=== PATIENT | male | born 1950 | race Hispanic/Latino ===

== ENCOUNTER 2019-02-13 05:48 | Inpatient (IN) | payer OTHER ==
[2019-02-11 14:15] VITALS: BP 138/71
[2019-02-11 14:42] LABS: BASOPHILS % (AUTO) 0.6 % (0.0-5.0); EOSINOPHILS % (AUTO) 2.9 % (0.0-8.0); HEMATOCRIT 35.4 % (42-54); LYMPHOCYTES % (AUTO) 23.3 % (21.0-51.0); MEAN CORPUSCULAR HEMOGLOBIN 30.3 pg (27.0-33.0); MEAN CORPUSCULAR HGB CONC 35.1 g/dL (32.0-36.0); MEAN CORPUSCULAR VOLUME 86.3 fL (79-99); MONOCYTES % (AUTO) 7.1 % (3.0-13.0); NEUTROPHILS % (AUTO) 66.1 % (40.0-77.0); NUCLEATED RED BLOOD CELLS 0.1 % (0.0-0.19); PLATELET COUNT (AUTO) 227 K/uL (130-400); RED CELL DISTRIBUTION WIDTH 14.2 % (11.0-15.5); WHITE BLOOD COUNT (AUTO) 6.7 K/uL (4.8-10.8)
[2019-02-11 14:44] LABS: APPEARANCE,URINE Clear (CLEAR); BILIRUBIN,URINE Negative (NEGATIVE); COLOR,URINE Dark Yellow (YELLOW); GLUCOSE, URINE (UA) Negative (NEGATIVE); KETONES,URINE Negative (NEGATIVE); LEUKOCYTE ESTERASE ,URINE Trace (NEGATIVE); NITRATE,URINE Negative (NEGATIVE); OCCULT BLOOD,URINE Negative (NEGATIVE); PROTEIN,URINE Negative (NEGATIVE)
[2019-02-11 14:50] LABS: BACTERIA,URINE Few /HPF (None Seen); RBC,URINE 0-1 /HPF (0-1); SQUAMOUS EPITHELIAL CELL,UR Rare /HPF (0-2)
[2019-02-11 14:56] LABS: INR 0.99 (0.85-1.15); PARTIAL THROMBOPLASTIN TIME 27.3 SEC (26.3-35.5); PROTHROMBIN TIME 10.4 SEC (9.6-11.6)
[2019-02-13] VITALS (19 sets, daily range): BP systolic 119–165; BP diastolic 50–82
[~2019-02-13] VITALS: Ht 185.4 cm; Wt 115.4 kg
[~2019-02-13 05:48] MED LIST: ASPI-1005 PO; ATEN50TA PO; CARB1DRO4 OP; FLUT15.845 NS; ISOS30TA6 PO; LEVO112T7 PO; LORA0.5T2 PO; MELO-108 PO; SIMV-43 PO; TAMS-1 PO
[2019-02-13] MEDS ORDERED: SODIUM CHLORIDE 0.9% 1000ML 1,000 ML IV ONE (06:26)
[2019-02-13] MEDS ORDERED: IOHEXOL-350 50ML VIAL IV ONE (07:14)
[2019-02-13] MEDS ORDERED: MIDAZOLAM HCL 1 MG/ML 2ML VIAL ONE ×2 (07:14→11:16)
[2019-02-13] MEDS ORDERED: IOHEXOL 350 MG/ML 100ML INFUS..BTL IV ONE (07:14)
[2019-02-13] MEDS ORDERED: NITROGLYCERIN 5 MG/ML 10 ML VIAL IV ONE (07:14)
[2019-02-13] MEDS ORDERED: FENTANYL CITRATE PF 50 MCG/1 ML 2ML VIAL ONE (07:15)
[2019-02-13] MEDS ORDERED: LIDOCAINE HCL 2% 20ML ONE (07:15)
[2019-02-13] MEDS ORDERED: NITR0.4T50 SL (07:16)
[2019-02-13] MEDS ORDERED: BIVALIRUDIN 250 MG/VIAL IV ONE (07:19)
[2019-02-13] MEDS ORDERED: SODIUM CHLORIDE 0.9% 1000ML 1,000 ML IV SCH ×3 (08:00→13:30)
[2019-02-13] MEDS ORDERED: IOHEXOL-350 75 ML VIAL IV ONE (08:02)
[2019-02-13] MEDS ORDERED: GLUCAGON 1MG KIT 1 MG ML IM PRN ×2 (08:45→13:30)
[2019-02-13] MEDS ORDERED: DEXTROSE 50%-WATER 50 ML DISP.SYRIN IV PRN ×2 (08:45→13:30)
[2019-02-13] MEDS ORDERED: LISINOPRIL 10 MG TABLET PO SCH (09:00)
[2019-02-13] MEDS ORDERED: METOPROLOL TARTRATE 25 MG TAB PO SCH (09:00)
[2019-02-13] MEDS ORDERED: CEFAZOLIN SODIUM 1 GM VIAL IVP PRN (09:15)
[2019-02-13 10:03] LABS: HEMATOCRIT 34.2 % (42-54); MEAN CORPUSCULAR HEMOGLOBIN 31.5 pg (27.0-33.0); MEAN CORPUSCULAR HGB CONC 36.1 g/dL (32.0-36.0); MEAN CORPUSCULAR VOLUME 87.2 fL (79-99); PLATELET COUNT (AUTO) 206 K/uL (130-400); RED BLOOD CELL COUNT(AUTO) 3.92 MIL/uL (4.50-6.20); RED CELL DISTRIBUTION WIDTH 14.2 % (11.0-15.5); WHITE BLOOD COUNT (AUTO) 7.1 K/uL (4.8-10.8)
[2019-02-13 10:14] LABS: INR 1.04 (0.85-1.15); PROTHROMBIN TIME 10.9 SEC (9.6-11.6)
[2019-02-13 10:16] LABS: ALBUMIN 3.3 g/dL (3.5-5.0); BILIRUBIN,TOTAL 0.6 mg/dL (0.2-1.0); CREATININE 0.9 mg/dL (0.5-1.5); TOTAL PROTEIN, SERUM 7.1 g/dL (6.0-8.3)
[2019-02-13] MEDS ORDERED: PROPOFOL 10 MG/ML 20ML VIAL IV ONE ×2 (11:16→13:01)
[2019-02-13] MEDS ORDERED: FENTANYL CITRATE PF 50 MCG/1 ML 20ML VIAL IJ ONE (11:16)
[2019-02-13] MEDS ORDERED: LIDOCAINE PF 2% 5ML ABBOJECT ONE ×2 (11:16→14:54)
[2019-02-13] MEDS ORDERED: ROCURONIUM 10MG/1ML SYR 10 MG/ML ML ONE (11:17)
[2019-02-13] MEDS ORDERED: NITROGLYCERIN 50 MG/D5% WATER 1 BOT ONE (11:45)
[2019-02-13] MEDS ORDERED: BACITRACIN 50,000 UNIT VIAL ONE (12:13)
[2019-02-13] MEDS ORDERED: PAPAVERINE HCL 30 MG/ML 2ML VIAL ONE (12:13)
[2019-02-13] MEDS ORDERED: GLYCOPYRROLATE 1 MG/5 ML SYRINGE ONE (12:32)
[2019-02-13 13:17] LABS: ABG HCO3 21.6 mmol/L (21.0-28.0); ABG OXYGEN SATURATION 99.2 % (95.0-99.0); ABG PCO2 37 mmHg (35-48)
[2019-02-13] MEDS ORDERED: SODIUM CHLORIDE 0.9% 500ML 500 ML IV SCH (13:17)
[2019-02-13] MEDS ORDERED: ALBUMIN (HUMAN) 5% 250 ML IV PRN (13:30)
[2019-02-13] MEDS ORDERED: MORPHINE SULFATE 4 MG/1ML SYG IV PRN (13:30)
[2019-02-13] MEDS ORDERED: EPINEPHRINE 8 MG in DEXTROSE 5%-WATER 250 ML IV PRN (13:30)
[2019-02-13] MEDS ORDERED: POTASSIUM PHOS 15 mMOL+NS250ML 250 ML IV PRN (13:30)
[2019-02-13] MEDS ORDERED: ACETAMINOPHEN 325 MG TAB PO PRN ×2 (13:30)
[2019-02-13] MEDS ORDERED: NITROGLYCERIN 50 MG/D5% WATER 250 BOT IV SCH (13:30)
[2019-02-13] MEDS ORDERED: SODIUM CHLORIDE 0.9% 10 ML VIAL IVP PRN (13:30)
[2019-02-13] MEDS ORDERED: PROPOFOL 1000 MG/100 ML 100 ML IV PRN (13:30)
[2019-02-13] MEDS ORDERED: MORPHINE SULFATE 2 MG/ML 1ML SYG IV PRN (13:30)
[2019-02-13] MEDS ORDERED: TRAMADOL HCL 50 MG TABLET PO PRN (13:30)
[2019-02-13] MEDS ORDERED: SODIUM CHLORIDE 0.9% 250 ML IV PRN (13:30)
[2019-02-13] MEDS ORDERED: AMINOCAPROIC ACID 15,000 MG in SODIUM CHLORIDE 0.9% 250 ML IV SCH (13:30)
[2019-02-13] MEDS ORDERED: ACETAMINOPHEN 650 MG SUPPOSITORY RC PRN (13:30)
[2019-02-13] MEDS ORDERED: NOREPINEPHRINE 4MG/NS 250ML 250 ML IV PRN (13:30)
[2019-02-13] MEDS ORDERED: INSULIN REGULAR, HUMAN 3ML 100 UNIT in SODIUM CHLORIDE 0.9% 99 ML IV SCH ×2 (13:30)
[2019-02-13] MEDS ORDERED: SODIUM BICARB 50MEQ 50ML VIAL ONE (13:43)
[2019-02-13 14:32] LABS: ABG PCO2 35 mmHg (35-48)
[2019-02-13] MEDS ORDERED: NOREPINEPHRINE BITARTRATE 1 MG/1 ML ML IV ONE (14:54)
[2019-02-13] MEDS ORDERED: EPINEPHRINE 1 MG/ML AMPULE ONE (14:54)
[2019-02-13] MEDS ORDERED: ESMOLOL HCL 10 MG/ML 10 ML VIAL ONE (14:54)
[2019-02-13] MEDS ORDERED: PROTAMINE SULFATE 10 MG/ML 25ML VIAL IV ONE (14:54)
[2019-02-13] MEDS ORDERED: AMINOCAPROIC ACID 250 MG/ML 20 ML VIAL IV ONE (14:54)
[2019-02-13] MEDS ORDERED: HEPARIN SODIUM 1000UNIT/ML 10ML VIAL ONE (14:54)
[2019-02-13 15:44] LABS: ABG BASE EXCESS -3.4 mmol/L (-2.0-3.0); ABG HCO3 21.5 mmol/L (21.0-28.0); ABG PCO2 38 mmHg (35-48)
[2019-02-13 15:46] LABS: HEMATOCRIT 32.1 % (42-54); MEAN CORPUSCULAR HEMOGLOBIN 29.9 pg (27.0-33.0); MEAN CORPUSCULAR HGB CONC 34.5 g/dL (32.0-36.0); MEAN CORPUSCULAR VOLUME 86.9 fL (79-99); PLATELET COUNT (AUTO) 248 K/uL (130-400); RED CELL DISTRIBUTION WIDTH 13.8 % (11.0-15.5); WHITE BLOOD COUNT (AUTO) 19.9 K/uL (4.8-10.8)
[2019-02-13] MEDS ORDERED: CALCIUM GLUCONATE 1 GM/10 ML VIAL IV ONE ×3 (15:47→18:50)
[2019-02-13] MEDS: SODIUM BICARB 50MEQ 50ML VIAL IV PRN ×5 (15:48→20:36)
[2019-02-13 15:57] LABS: INR 1.09 (0.85-1.15); PARTIAL THROMBOPLASTIN TIME 24.1 SEC (26.3-35.5); PROTHROMBIN TIME 11.4 SEC (9.6-11.6)
[2019-02-13 15:58] LABS: CREATININE 0.9 mg/dL (0.5-1.5); MAGNESIUM 1.6 mg/dL (1.80-2.40); PHOSPHORUS 3.9 mg/dL (2.5-4.9); POTASSIUM 3.6 mmol/L (3.5-5.1)
[2019-02-13] MEDS: CALCIUM GLUCONATE 1 GM in SODIUM CHLORIDE 0.9% 50 ML IV PRN ×3 (15:58→18:50)
[2019-02-13] MEDS: POTASSIUM CHLORIDE 20MEQ/100ML 100 ML IV PRN ×4 (16:00→22:17)
[2019-02-13] MEDS: MAGNESIUM 2GM PREMIX 50ML 50 ML IV PRN (16:16)
[2019-02-13 16:38] LABS: ABG BASE EXCESS -1.3 mmol/L (-2.0-3.0); ABG HCO3 22.9 mmol/L (21.0-28.0); ABG OXYGEN SATURATION 98.8 % (95.0-99.0); ABG PCO2 37 mmHg (35-48)
[2019-02-13 17:37] LABS: ABG BASE EXCESS -1.4 mmol/L (-2.0-3.0); ABG HCO3 23.8 mmol/L (21.0-28.0); ABG PCO2 42 mmHg (35-48)
[2019-02-13] MEDS: CEFAZOLIN SODIUM 1 GM VIAL IV SCH (17:50)
[2019-02-13 18:37] LABS: ABG BASE EXCESS -1.9 mmol/L (-2.0-3.0); ABG HCO3 22.8 mmol/L (21.0-28.0); ABG OXYGEN SATURATION 98.3 % (95.0-99.0); ABG PCO2 39 mmHg (35-48)
--- NOTE | 2019-02-13 18:45 | NUR ---
Patient awake and alert. Able to follow commands. Able to raise head from pillow. NIP -30 and TV 1057. Patient extubated and placed on cool mist 40%. Patient tolerated well.
[2019-02-13 20:01] LABS: ABG HCO3 23.3 mmol/L (21.0-28.0); ABG PCO2 42 mmHg (35-48)
[2019-02-13] MEDS: TRAMADOL HCL 50 MG TABLET PO PRN (20:17)
[2019-02-13] MEDS: ATORVASTATIN CALCIUM 40 MG TABLET PO SCH (20:19)
[2019-02-13] MEDS: FAMOTIDINE/PF 20 MG/2 ML VIAL IV SCH (20:19)
--- NOTE | 2019-02-13 20:30 | NUR ---
LEVOPHED LEVOPHED WEANED OFF AT THIS TIME. ASBP 140-150 WILL CONTINUE TO MONITOR.
[2019-02-13 21:00] LABS: CREATININE 1.3 mg/dL (0.5-1.5); POTASSIUM 3.8 mmol/L (3.5-5.1)
[2019-02-13] MEDS: ONDANSETRON HCL 4 MG/2 ML VIAL IV PRN (21:51)
[2019-02-13 22:10] LABS: ABG BASE EXCESS 0.4 mmol/L (-2.0-3.0); ABG HCO3 24.7 mmol/L (21.0-28.0); ABG PCO2 39 mmHg (35-48)
[2019-02-14] VITALS (24 sets, daily range): BP systolic 98–163; BP diastolic 39–77
[2019-02-14] MEDS ORDERED: SALI10004 MM (01:23)
[2019-02-14] MEDS: CEFAZOLIN SODIUM 1 GM VIAL IV SCH ×2 (01:51→10:16)
--- NOTE | 2019-02-14 03:02 | NUR ---
STATUS PT RESTING COMFORTABLY DOES HAVE PERIODS OF ANXIETY. WHEN ASKED IF IN PAIN STATES ONLY WHEN HE TAKES DEEP BREATHS. WILL CONTINUE TO MONITOR.
[2019-02-14 04:11] LABS: ABG BASE EXCESS 3.8 mmol/L (-2.0-3.0); ABG HCO3 28.6 mmol/L (21.0-28.0); ABG OXYGEN SATURATION 98.7 % (95.0-99.0); ABG PCO2 43 mmHg (35-48)
[2019-02-14 04:20] LABS: HEMATOCRIT 31.5 % (42-54); MEAN CORPUSCULAR HEMOGLOBIN 29.8 pg (27.0-33.0); MEAN CORPUSCULAR HGB CONC 34.7 g/dL (32.0-36.0); MEAN CORPUSCULAR VOLUME 85.8 fL (79-99); PLATELET COUNT (AUTO) 213 K/uL (130-400); RED BLOOD CELL COUNT(AUTO) 3.67 MIL/uL (4.50-6.20); RED CELL DISTRIBUTION WIDTH 14.3 % (11.0-15.5); WHITE BLOOD COUNT (AUTO) 15.2 K/uL (4.8-10.8)
[2019-02-14] MEDS ORDERED: CALCIUM GLUCONATE 1 GM/10 ML VIAL IV ONE (04:29)
[2019-02-14] MEDS: CALCIUM GLUCONATE 1 GM in SODIUM CHLORIDE 0.9% 50 ML IV PRN ×2 (04:31→04:49)
[2019-02-14 04:37] LABS: CREATININE 1.1 mg/dL (0.5-1.5); MAGNESIUM 1.9 mg/dL (1.80-2.40); PHOSPHORUS 3.4 mg/dL (2.5-4.9); POTASSIUM 4.2 mmol/L (3.5-5.1)
[2019-02-14 04:41] LABS: INR 1.06 (0.85-1.15); PARTIAL THROMBOPLASTIN TIME 24.5 SEC (26.3-35.5); PROTHROMBIN TIME 11.1 SEC (9.6-11.6)
[2019-02-14] MEDS: MAGNESIUM 2GM PREMIX 50ML 50 ML IV PRN (04:42)
[2019-02-14] MEDS: ONDANSETRON HCL 4 MG/2 ML VIAL IV PRN (09:07)
[2019-02-14] MEDS: FUROSEMIDE 10 MG/ML 2ML VIAL IV SCH ×2 (09:08→20:16)
[2019-02-14] MEDS: FAMOTIDINE/PF 20 MG/2 ML VIAL IV SCH (09:08)
[2019-02-14] MEDS: ASPIRIN 325MG EC TAB 325 MG TABLET.DR PO SCH (10:15)
--- NOTE | 2019-02-14 12:39 | NUR ---
BP IN STANDING 79/50 NURSE AWARE. Pt JARAD. RETURNS TO SITTING. POST TREAT BP 133/62 Addendum: 02/14/19 at [address], PT PT Amended: Links added.
[2019-02-14] MEDS ORDERED: SALIVA SUBSTITUTION COMBO NO 9 PO PRN (19:15)
--- NOTE | 2019-02-14 19:24 | NUR ---
cm note met with patient and with daughter Nenita, pt states resides athome alone very independent with adls and ambulation. no dme. both pt and daughter wish to go to a rehab, want [facility] only. states will only consider snf if denied by insurance. 2nd choice would be [facility], due to it is close to daughter eileen home. states surgeon suggested [facility] and that is their first choicie, updated on process for insurance.updated primary nurse for md orders needed. Addendum: 02/14/19 at 7 by HARSHIL WELCH CM Amended: Links added.
[2019-02-14] MEDS: ATORVASTATIN CALCIUM 40 MG TABLET PO SCH (20:15)
[2019-02-14] MEDS: TAMSULOSIN HCL 0.4 MG CAP.ER.24H PO SCH (20:15)
[2019-02-14] MEDS: METOPROLOL TARTRATE 25 MG TAB PO SCH (20:16)
[2019-02-14] MEDS: FAMOTIDINE 20MG TAB 20 MG TAB PO SCH (20:16)
[2019-02-14] MEDS: TRAMADOL HCL 50 MG TABLET PO PRN (20:18)
--- NOTE | 2019-02-14 22:40 | NUR ---
CHEST TUBES PATIENT CHEST TUBES REMOVED. FOLLOWED INSTRUCTION AND TOLERATED WELL. DENIES ACUTE PAIN. CURRENTLY CALM. BREATHING REGULAR AND UNLABORED. NO ACUTE SIGNS OR SYMPTOMS OF DISTRESS.
[2019-02-15] VITALS (24 sets, daily range): BP systolic 96–149; BP diastolic 50–71
[2019-02-15 03:54] LABS: HEMATOCRIT 28.4 % (42-54); MEAN CORPUSCULAR HEMOGLOBIN 29.7 pg (27.0-33.0); MEAN CORPUSCULAR VOLUME 87.3 fL (79-99); PLATELET COUNT (AUTO) 136 K/uL (130-400); RED BLOOD CELL COUNT(AUTO) 3.25 MIL/uL (4.50-6.20); RED CELL DISTRIBUTION WIDTH 14.4 % (11.0-15.5); WHITE BLOOD COUNT (AUTO) 12.8 K/uL (4.8-10.8)
[2019-02-15 04:05] LABS: POTASSIUM 3.6 mmol/L (3.5-5.1)
[2019-02-15] MEDS: POTASSIUM CHLORIDE 20MEQ/100ML 100 ML IV PRN (04:44)
[2019-02-15] MEDS ORDERED: LIDOCAINE HCL-MPF 1% 2ML VIAL IV PRN (04:45)
[2019-02-15] MEDS ORDERED: METOPROLOL TARTRATE 25 MG TAB PO SCH (09:00)
[2019-02-15] MEDS: FAMOTIDINE 20MG TAB 20 MG TAB PO SCH ×2 (09:21→20:38)
[2019-02-15] MEDS: METOPROLOL TARTRATE 25 MG TAB PO SCH ×2 (09:21→20:38)
[2019-02-15] MEDS: FUROSEMIDE 20 MG TABLET PO SCH ×2 (09:22→17:51)
[2019-02-15] MEDS: ASPIRIN 325MG EC TAB 325 MG TABLET.DR PO SCH (09:22)
--- NOTE | 2019-02-15 11:45 | NUR ---
118/61 91 % 2L POST TREATMENT BACK TO BED PER NURSE Addendum: 02/15/19 at [address], PT PT Amended: Links added.
[2019-02-15] MEDS: TAMSULOSIN HCL 0.4 MG CAP.ER.24H PO SCH (20:39)
[2019-02-15] MEDS: ATORVASTATIN CALCIUM 40 MG TABLET PO SCH (20:39)
[2019-02-16] VITALS (11 sets, daily range): BP systolic 96–135; BP diastolic 45–69
[2019-02-16 03:54] LABS: HEMATOCRIT 30.5 % (42-54); MEAN CORPUSCULAR HEMOGLOBIN 29.6 pg (27.0-33.0); MEAN CORPUSCULAR HGB CONC 33.7 g/dL (32.0-36.0); MEAN CORPUSCULAR VOLUME 87.7 fL (79-99); PLATELET COUNT (AUTO) 119 K/uL (130-400); RED BLOOD CELL COUNT(AUTO) 3.48 MIL/uL (4.50-6.20); RED CELL DISTRIBUTION WIDTH 14.4 % (11.0-15.5)
[2019-02-16 04:01] LABS: CREATININE 0.9 mg/dL (0.5-1.5); MAGNESIUM 1.8 mg/dL (1.80-2.40); POTASSIUM 3.6 mmol/L (3.5-5.1)
[2019-02-16] MEDS: POTASSIUM CHLORIDE 10% ELIXIR 20 MEQ/15 ML UDCUP PO PRN ×2 (06:20→08:23)
[2019-02-16] MEDS ORDERED: LEVOTHYROXINE 112 MCG TABLET ONE (06:21)
[2019-02-16] MEDS: LEVOTHYROXINE 112 MCG TABLET PO SCH (06:22)
--- NOTE | 2019-02-16 07:28 | NUR ---
TRANSFER PATIENT BATHED AND TRANSFERRED OOB TO CHAIR. PATIENT THEN TRANSFERRED TO ROOM 221 VIA CHAIR. TOLERATED ACTIVITY WELL. DAUGHTER JOSE ANTONIO NOTIFIED OF TRANSFER.
[2019-02-16] MEDS: FAMOTIDINE 20MG TAB 20 MG TAB PO SCH ×2 (08:20→20:34)
[2019-02-16] MEDS: FUROSEMIDE 20 MG TABLET PO SCH ×2 (08:20→16:33)
[2019-02-16] MEDS: ASPIRIN 325MG EC TAB 325 MG TABLET.DR PO SCH (08:20)
[2019-02-16] MEDS: METOPROLOL TARTRATE 25 MG TAB PO SCH ×2 (08:23→20:34)
[2019-02-16] MEDS: MAGNESIUM 2GM PREMIX 50ML 50 ML IV PRN (08:23)
[2019-02-16] MEDS: ENOXAPARIN SODIUM 30 MG/0.3 ML SQ SCH (08:24)
[2019-02-16] MEDS ORDERED: HYDROXYZINE HCL 50 MG/ML VIAL IM PRN (09:00)
[2019-02-16] MEDS: AMIODARONE HCL 200 MG TABLET PO SCH ×2 (11:16→20:34)
[2019-02-16] MEDS: POLYETHYLENE GLYCOL 3350 17 GM POWD.PACK PO SCH (11:16)
--- NOTE | 2019-02-16 17:22 | NUR ---
DR. Ingrid UMRILLO IN ROOM SPEAKING WITH PT. AND PT.'S DAUGHTER AT BEDSIDE RE:PLAN OF CARE, QUESTIONS ANSWERED.
[2019-02-16] MEDS: ATORVASTATIN CALCIUM 40 MG TABLET PO SCH (20:34)
[2019-02-16] MEDS: TAMSULOSIN HCL 0.4 MG CAP.ER.24H PO SCH (20:35)
[2019-02-17] VITALS (7 sets, daily range): BP systolic 111–159; BP diastolic 53–90
[2019-02-17 03:50] LABS: HEMATOCRIT 25.8 % (42-54); MEAN CORPUSCULAR HGB CONC 34.3 g/dL (32.0-36.0); MEAN CORPUSCULAR VOLUME 87.6 fL (79-99); PLATELET COUNT (AUTO) 152 K/uL (130-400); RED BLOOD CELL COUNT(AUTO) 2.95 MIL/uL (4.50-6.20); RED CELL DISTRIBUTION WIDTH 14.5 % (11.0-15.5); WHITE BLOOD COUNT (AUTO) 7.4 K/uL (4.8-10.8)
[2019-02-17 04:01] LABS: POTASSIUM 4.1 mmol/L (3.5-5.1)
[2019-02-17] MEDS: FUROSEMIDE 20 MG TABLET PO SCH ×2 (07:47→16:05)
[2019-02-17] MEDS: ASPIRIN 325MG EC TAB 325 MG TABLET.DR PO SCH (07:47)
[2019-02-17] MEDS: AMIODARONE HCL 200 MG TABLET PO SCH ×2 (07:47→20:23)
[2019-02-17] MEDS: FAMOTIDINE 20MG TAB 20 MG TAB PO SCH ×2 (07:48→20:23)
[2019-02-17] MEDS: METOPROLOL TARTRATE 25 MG TAB PO SCH ×2 (07:48→20:23)
[2019-02-17] MEDS: LEVOTHYROXINE 112 MCG TABLET PO SCH (07:48)
[2019-02-17] MEDS: POLYETHYLENE GLYCOL 3350 17 GM POWD.PACK PO SCH (07:49)
[2019-02-17] MEDS: ENOXAPARIN SODIUM 30 MG/0.3 ML SQ SCH (07:50)
[2019-02-17] MEDS ORDERED: ENOXAPARIN SODIUM 30 MG/0.3 ML SQ SCH (09:00)
--- NOTE | 2019-02-17 09:10 | NUR ---
DR. CISNEROS IN ROOM SPEAKING WITH PT. RE:PLAN OF CARE. MEDICATIONS, LAB RESULTS, VS AND CXR IMAGE REVIEWED BY DR. CISNEROS. ORDERS RECEIVED.
--- NOTE | 2019-02-17 09:33 | NUR ---
DR. Christian LANE IN ROOM ASSESSING/SPEAKING WITH PT. RE:PLAN OF CARE AND DISCHARGE PLANNING, PT. VERBALIZED UNDERSTANDING. QUESTIONS ANSWERED BY DR. LANE.
[2019-02-17] MEDS ORDERED: CALCIUM GLUCONATE 1 GM in SODIUM CHLORIDE 0.9% 50 ML IV SCH (10:15)
--- NOTE | 2019-02-17 14:32 | NUR ---
LANETTE PLAN KO IN CHART FOR WIR. THELMA NOLASCO. INFO SENT TO [facility]. GAVIN NOTIFIED AND VISITED WITH PATIENT. Addendum: 02/17/19 at 1434 by ELIO QUINTERO RN CM Amended: Links added.
--- NOTE | 2019-02-17 19:00 | NUR ---
CHEST TUBE SUTURES/INCISIONS PAINTED WITH BETADINE AND REMOVED; STERI-STRIPS APPLIED ORDERED.
[2019-02-17] MEDS: ATORVASTATIN CALCIUM 40 MG TABLET PO SCH (20:22)
[2019-02-17] MEDS: TAMSULOSIN HCL 0.4 MG CAP.ER.24H PO SCH (20:23)
[2019-02-17] MEDS ORDERED: ARTIFICAL TEARS SOL 15 ML OP PRN (23:15)
--- NOTE | 2019-02-18 03:30 | NUR ---
PATIENT REFUSED BATH AT TIME AND LATER THIIS SHIFT, STATED TO GUEST HOUSE MANAGER THAT WOULD TAKE A BATH WHEN WAS HERE 0530-PATIENT REFUSING TO GET UP AND SIT IN RECLINER.
[2019-02-18 03:54] VITALS: BP 149/60
[2019-02-18 03:54] LABS: BASOPHILS % (AUTO) 0.4 % (0.0-5.0); EOSINOPHILS % (AUTO) 0.1 % (0.0-8.0); HEMATOCRIT 25.4 % (42-54); LYMPHOCYTES % (AUTO) 9.5 % (21.0-51.0); MEAN CORPUSCULAR HEMOGLOBIN 29.9 pg (27.0-33.0); MEAN CORPUSCULAR VOLUME 85.5 fL (79-99); MONOCYTES % (AUTO) 8.8 % (3.0-13.0); NEUTROPHILS % (AUTO) 81.2 % (40.0-77.0); PLATELET COUNT (AUTO) 165 K/uL (130-400); RED BLOOD CELL COUNT(AUTO) 2.97 MIL/uL (4.50-6.20); RED CELL DISTRIBUTION WIDTH 14.2 % (11.0-15.5); WHITE BLOOD COUNT (AUTO) 6.4 K/uL (4.8-10.8)
[2019-02-18 04:14] LABS: POTASSIUM 3.8 mmol/L (3.5-5.1)
[2019-02-18] MEDS: POTASSIUM CHLORIDE 20 MEQ ERTAB PO PRN ×2 (05:37→07:12)
[2019-02-18 06:59] VITALS: BP 149/79
[2019-02-18] MEDS: METOPROLOL TARTRATE 25 MG TAB PO SCH ×3 (07:12→20:37)
[2019-02-18] MEDS: AMIODARONE HCL 200 MG TABLET PO SCH ×2 (07:12→20:37)
[2019-02-18] MEDS: FUROSEMIDE 20 MG TABLET PO SCH ×2 (07:12→16:16)
[2019-02-18] MEDS: FAMOTIDINE 20MG TAB 20 MG TAB PO SCH ×2 (07:12→20:37)
[2019-02-18] MEDS: ASPIRIN 325MG EC TAB 325 MG TABLET.DR PO SCH (07:12)
[2019-02-18] MEDS: LEVOTHYROXINE 112 MCG TABLET PO SCH (07:12)
[2019-02-18] MEDS: POLYETHYLENE GLYCOL 3350 17 GM POWD.PACK PO SCH (07:13)
[2019-02-18] MEDS: ENOXAPARIN SODIUM 30 MG/0.3 ML SQ SCH (07:13)
[2019-02-18] MEDS: FLUTICASONE PROPIONATE 50MCG/SPRAY 16 GM BOTTLE EN SCH ×2 (07:13→07:15)
--- NOTE | 2019-02-18 07:50 | NUR ---
ASSESSMENT PT IS AAOX4 DENIES CP DENIES SOB DENIES NV NO COMPLAINTS, BREATHING PATTERN IS EVEN AND UNLABORED. RESTING IN BED. ENCOURAGED COUGH AND DEEP BREATHING WITH HEART PILLOW SPLINTING AND USE OF IS 10XS Q1HR WHILE AWAKE. CALL LIGHT WITHIN REACH.
[2019-02-18] MEDS ORDERED: CALCIUM GLUCONATE 1 GM/10 ML VIAL IV SCH (08:15)
[2019-02-18] MEDS ORDERED: CALCIUM GLUCONATE 1 GM in SODIUM CHLORIDE 0.9% 50 ML IV SCH (08:15)
--- NOTE | 2019-02-18 09:00 | NUR ---
ROUNDS DR AMELIA GARCIA PA-C ROUNDED. SAW PATIENT, ORDERS RECEIVED AND CARRIED OUT.
[2019-02-18] MEDS: FLUOXETINE HCL 20 MG CAPSULE PO SCH (09:54)
[2019-02-18 11:00] VITALS: BP 131/70
[2019-02-18 15:34] VITALS: BP 139/75
[2019-02-18] MEDS: ONDANSETRON HCL 4 MG/2 ML VIAL IV PRN (16:54)
--- NOTE | 2019-02-18 17:15 | NUR ---
STATUS SITTING UPRIGHT IN BED. FAMILY IS AT BEDSIDE, CALL LIGHT WITHIN REACH.
[2019-02-18 19:55] VITALS: BP 153/84
[2019-02-18] MEDS: ATORVASTATIN CALCIUM 40 MG TABLET PO SCH (20:37)
[2019-02-18] MEDS: TAMSULOSIN HCL 0.4 MG CAP.ER.24H PO SCH (20:37)
[2019-02-18 23:33] VITALS: BP 142/75
[2019-02-19 03:51] LABS: BASOPHILS % (AUTO) 0.3 % (0.0-5.0); EOSINOPHILS % (AUTO) 0.2 % (0.0-8.0); HEMATOCRIT 25.5 % (42-54); LYMPHOCYTES % (AUTO) 9.6 % (21.0-51.0); MEAN CORPUSCULAR HEMOGLOBIN 29.8 pg (27.0-33.0); MEAN CORPUSCULAR HGB CONC 34.8 g/dL (32.0-36.0); MEAN CORPUSCULAR VOLUME 85.7 fL (79-99); MONOCYTES % (AUTO) 10.8 % (3.0-13.0); NEUTROPHILS % (AUTO) 79.1 % (40.0-77.0); PLATELET COUNT (AUTO) 183 K/uL (130-400); RED BLOOD CELL COUNT(AUTO) 2.98 MIL/uL (4.50-6.20); RED CELL DISTRIBUTION WIDTH 14.2 % (11.0-15.5); WHITE BLOOD COUNT (AUTO) 7.5 K/uL (4.8-10.8)
[2019-02-19 04:10] LABS: CREATININE 0.9 mg/dL (0.5-1.5); MAGNESIUM 1.9 mg/dL (1.80-2.40); PHOSPHORUS 3.5 mg/dL (2.5-4.9); POTASSIUM 3.8 mmol/L (3.5-5.1)
[2019-02-19 04:12] VITALS: BP 134/76
[2019-02-19] MEDS: POTASSIUM CHLORIDE 20 MEQ ERTAB PO PRN (05:21)
[2019-02-19] MEDS: AMIODARONE HCL 200 MG TABLET PO SCH (07:23)
[2019-02-19] MEDS: FLUTICASONE PROPIONATE 50MCG/SPRAY 16 GM BOTTLE EN SCH (07:23)
[2019-02-19] MEDS: FUROSEMIDE 20 MG TABLET PO SCH ×2 (07:23→16:20)
[2019-02-19] MEDS: LEVOTHYROXINE 112 MCG TABLET PO SCH (07:23)
[2019-02-19] MEDS: FLUOXETINE HCL 20 MG CAPSULE PO SCH (07:23)
[2019-02-19] MEDS: METOPROLOL TARTRATE 25 MG TAB PO SCH (07:24)
[2019-02-19] MEDS: FAMOTIDINE 20MG TAB 20 MG TAB PO SCH (07:24)
[2019-02-19] MEDS: POLYETHYLENE GLYCOL 3350 17 GM POWD.PACK PO SCH (07:24)
[2019-02-19] MEDS: ASPIRIN 325MG EC TAB 325 MG TABLET.DR PO SCH (07:24)
[2019-02-19] MEDS: ENOXAPARIN SODIUM 30 MG/0.3 ML SQ SCH (07:25)
[2019-02-19 07:53] VITALS: BP 112/60
--- NOTE | 2019-02-19 08:00 | NUR ---
ASSESSMENT PT IS AAOX4 DENIES CP DENIES SOB DENIES NV NO COMPLAINTS. STERNAL INCISION IS OPEN TO AIR, CLEAN DRY AND INTACT. ENCOURAGED COUGH AND DEEP BREATHING. CALL LIGHT WITHIN REACH. Livia GARCIA PA-C ROUNDED, ORDERS RECEIVED.
[2019-02-19] MEDS: METOPROLOL TARTRATE 50 MG TAB PO SCH ×2 (08:02→08:31)
[2019-02-19 10:50] VITALS: BP 132/96
--- NOTE | 2019-02-19 12:28 | NUR ---
LANETTE TIJERINA WITH [facility] CALLED SAID PATIENT DENIED INPATIENT REHAB. EXPLAINED PATIENT LIVES ALONE AND WHILE CAN AMBULATE HAS TROUBLE GETTING IN AND OUT OF BED AND CHAIRS. WILL BE SUBMITTING TO R CALLED KAYLYNN HER TO DO EVAL. POSSIBLE DC TODAY. Addendum: 02/19/19 at 1229 by ELIO QUINTERO RN CM Amended: Links added.
--- NOTE | 2019-02-19 12:35 | NUR ---
UP TO RESTROOM BM ACHIEVED, BACK TO BED. CALL LIGHT WITHIN REACH.
[2019-02-19 15:04] VITALS: BP 103/53
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
--- NOTE | 2019-02-19 16:34 | NUR ---
LANETTE CHAIDEZ CALLED SAID PATIENT APPROVED AT 1607. LET NURSE AND MD KNOW. PATIENT WILL GO VIA FACILITY [facility] DONE AND SENT. SPOKE TO PATIENT ABOUT ACCEPTANCE SAID OKAY TO GO TODAY. ASKED IF HE WANTED ME TO CALL DAUGHTER TO LET HER KNOW AND TO ASK ABOUT TOILETREES SAID NO DON'T CALL HER. Addendum: 02/19/19 at 1636 by ELIO QUINTERO RN CM Amended: Links added.
--- NOTE | 2019-02-19 16:54 | NUR ---
REPORT GIVEN TO [facility] REPORT GIVEN TO [facility], AWAITING PICKUP
--- NOTE | 2019-02-19 17:15 | NUR ---
DISCHARGE PIV REMOVED CATH TIP INTACT, TELE PACK REMOVED. DAUGHTER IS AT BEDSIDE. AWAITING TRANSPORT VAN FROM [facility].
--- NOTE | 2019-02-19 18:37 | NUR ---
TRANSPORT PICKED UP PATIENT ALL BELONGINGS TAKEN WITH PATIENT, DC PACKET TAKEN WITH TRANSPORT STAFF
== END 2019-02-19 18:35 | DRG 234 ==
LOC: DAH 05:48 → DAHIP 05:49 → 2CV 14:01 → 2BH 02-14 05:51 → 2DH 02-16 06:49
PROVIDERS: ADMIT Internal Medicine; ATTEND Internal Medicine
PROC: 06BQ4ZZ Excision of Left Saphenous Vein, Percutaneous Endoscopic Approach (ICD-10-PCS; 2019-02-13)
PROC: 021209W Bypass Coronary Artery, Three Arteries from Aorta with Autologous Venous Tissue, Open Approach (ICD-10-PCS; 2019-02-13)
PROC: B2151ZZ Fluoroscopy of Left Heart using Low Osmolar Contrast (ICD-10-PCS; 2019-02-13)
PROC: 4A023N7 Measurement of Cardiac Sampling and Pressure, Left Heart, Percutaneous Approach (ICD-10-PCS; 2019-02-13)
PROC: B41G1ZZ Fluoroscopy of Left Lower Extremity Arteries using Low Osmolar Contrast (ICD-10-PCS; 2019-02-13)
PROC: B3121ZZ Fluoroscopy of Left Subclavian Artery using Low Osmolar Contrast (ICD-10-PCS; 2019-02-13)
PROC: B2111ZZ Fluoroscopy of Multiple Coronary Arteries using Low Osmolar Contrast (ICD-10-PCS; principal; 2019-02-13 11:22)
PROC: 02100Z9 Bypass Coronary Artery, One Artery from Left Internal Mammary, Open Approach (ICD-10-PCS; 2019-02-13 11:22)
DX: I25.110 Atherosclerotic heart disease of native coronary artery with unstable angina pectoris (principal); D62 Acute posthemorrhagic anemia; F17.200 Nicotine dependence, unspecified, uncomplicated; D72.829 Elevated white blood cell count, unspecified; E03.9 Hypothyroidism, unspecified; E66.9 Obesity, unspecified; E78.5 Hyperlipidemia, unspecified; F32.9 Major depressive disorder, single episode, unspecified; F41.9 Anxiety disorder, unspecified; I10 Essential (primary) hypertension; I48.91 Unspecified atrial fibrillation; M19.90 Unspecified osteoarthritis, unspecified site; N40.0 Benign prostatic hyperplasia without lower urinary tract symptoms; Z68.33 Body mass index [BMI] 33.0-33.9, adult; Z83.3 Family history of diabetes mellitus; Z81.8 Family history of other mental and behavioral disorders; Z82.3 Family history of stroke
CPT/HCPCS: 36415; 71045; 80048; 80053; 80061; 81001; 82330; 82435; 82803; 82947; 82948; 83036; 83605; 83735; 84100; 84132; 84295; 84443; 85018; 85025; 85027; 85347; 85610; 85730; 86850; 86900; 86901; 86922; 93005; 93458; 93880; 94002; 94010; 94150; 97039; 99156; 99157; A4606; A7048; C1894; G0378; J0171; J0583; J0610; J0690; J1644; J1650; J1815; J1940; J2001; J2250; J2405; J2440; J2704; J2720; J3010; J3475; J3480; J3490; J7030; J7040; P9045; Q9967

== ENCOUNTER 2019-02-26 18:38 | Inpatient (IN) | payer OTHER ==
[~2019-02-26] VITALS: Ht 185.4 cm; Wt 105.3 kg
[~2019-02-26 18:38] MED LIST changes: +NITR0.4T50 SL; +SALI10004 MM
[2019-02-26 19:43] LABS: BASOPHILS % (AUTO) 0.5 % (0.0-5.0); EOSINOPHILS % (AUTO) 1.1 % (0.0-8.0); HEMATOCRIT 27.2 % (42-54); LYMPHOCYTES % (AUTO) 11.9 % (21.0-51.0); MEAN CORPUSCULAR HEMOGLOBIN 29.4 pg (27.0-33.0); MEAN CORPUSCULAR HGB CONC 34.1 g/dL (32.0-36.0); MEAN CORPUSCULAR VOLUME 86.1 fL (79-99); MONOCYTES % (AUTO) 7.2 % (3.0-13.0); NEUTROPHILS % (AUTO) 79.3 % (40.0-77.0); PLATELET COUNT (AUTO) 458 K/uL (130-400); RED BLOOD CELL COUNT(AUTO) 3.16 MIL/uL (4.50-6.20); RED CELL DISTRIBUTION WIDTH 15.6 % (11.0-15.5); WHITE BLOOD COUNT (AUTO) 10.4 K/uL (4.8-10.8)
[2019-02-26 19:51] LABS: POTASSIUM 4.1 mmol/L (3.5-5.1)
[2019-02-26 19:54] LABS: INR 1.07 (0.85-1.15); PARTIAL THROMBOPLASTIN TIME 25.5 SEC (26.3-35.5); PROTHROMBIN TIME 11.2 SEC (9.6-11.6)
[2019-02-26 20:12] LABS: APPEARANCE,URINE Clear (CLEAR); BILIRUBIN,URINE Negative (NEGATIVE); COLOR,URINE Yellow (YELLOW); GLUCOSE, URINE (UA) Negative (NEGATIVE); KETONES,URINE Negative (NEGATIVE); LEUKOCYTE ESTERASE ,URINE Negative (NEGATIVE); NITRATE,URINE Negative (NEGATIVE); OCCULT BLOOD,URINE Negative (NEGATIVE); PH,URINE 6.5 (5.0-8.0); PROTEIN,URINE Negative (NEGATIVE)
[2019-02-26] MEDS ORDERED: IOHEXOL-350 50ML VIAL IV ONE (20:26)
[2019-02-26] MEDS ORDERED: FUROSEMIDE 10 MG/ML 4ML VIAL ONE (22:57)
[2019-02-26] MEDS ORDERED: ZOSYN 3.375GM+NS 50ML 50 ML IV ONE (22:57)
[2019-02-26] MEDS: FUROSEMIDE 10 MG/ML 2ML VIAL IV SCH (23:30)
[2019-02-26] MEDS ORDERED: MAGNESIUM 2GM PREMIX 50ML 50 ML IV PRN (23:30)
[2019-02-26] MEDS ORDERED: POTASSIUM CHLORIDE 20MEQ/100ML 100 ML IV PRN (23:30)
[2019-02-26] MEDS ORDERED: LIDOCAINE HCL-MPF 1% 2ML VIAL IV PRN (23:30)
[2019-02-26] MEDS ORDERED: POTASSIUM CHLORIDE 10% ELIXIR 20 MEQ/15 ML UDCUP PO PRN (23:30)
[2019-02-27] MEDS ORDERED: ZOSYN 3.375GM+NS 50ML 50 ML IV SCH (01:00)
[2019-02-27] MEDS ORDERED: SODIUM CHLORIDE 0.9% 1000ML 1,000 ML IV ONE (02:32)
[2019-02-27] MEDS ORDERED: CEFTRIAXONE SODIUM 1 GM ONE (02:32)
[2019-02-27] MEDS: ZOSYN 3.375GM+NS 50ML 50 ML IV SCH ×3 (06:00→23:49)
[2019-02-27 06:16] LABS: BASOPHILS % (AUTO) 1.2 % (0.0-5.0); EOSINOPHILS % (AUTO) 1.1 % (0.0-8.0); HEMATOCRIT 26.9 % (42-54); LYMPHOCYTES % (AUTO) 13.7 % (21.0-51.0); MEAN CORPUSCULAR HEMOGLOBIN 28.9 pg (27.0-33.0); MEAN CORPUSCULAR HGB CONC 34.1 g/dL (32.0-36.0); MEAN CORPUSCULAR VOLUME 84.8 fL (79-99); MONOCYTES % (AUTO) 7.8 % (3.0-13.0); NEUTROPHILS % (AUTO) 76.2 % (40.0-77.0); PLATELET COUNT (AUTO) 466 K/uL (130-400); RED BLOOD CELL COUNT(AUTO) 3.18 MIL/uL (4.50-6.20); WHITE BLOOD COUNT (AUTO) 9.3 K/uL (4.8-10.8)
[2019-02-27 06:31] LABS: BILIRUBIN,TOTAL 0.3 mg/dL (0.2-1.0); CREATININE 1.1 mg/dL (0.5-1.5); POTASSIUM 3.9 mmol/L (3.5-5.1); TOTAL PROTEIN, SERUM 7.3 g/dL (6.0-8.3)
[2019-02-27] MEDS: CEFTRIAXONE SODIUM 1 GM IVP SCH ×2 (06:57→18:57)
[2019-02-27] MEDS ORDERED: ZOSYN 3.375GM+NS 50ML 50 ML IV ONE (07:15)
[2019-02-27] MEDS: ASPIRIN 81MG TAB.CHEW PO SCH (09:00)
[2019-02-27] MEDS: FAMOTIDINE 20MG TAB 20 MG TAB PO SCH ×2 (09:00→21:00)
[2019-02-27] MEDS: ENOXAPARIN SODIUM 40 MG/0.4 ML SYRINGE SQ SCH (09:00)
[2019-02-27] MEDS ORDERED: ASPIRIN 81MG TAB.CHEW ONE (11:19)
[2019-02-27] MEDS ORDERED: FAMOTIDINE 20MG TAB 20 MG TAB ONE ×2 (11:20→20:51)
[2019-02-27] MEDS ORDERED: FUROSEMIDE 10 MG/ML 2ML VIAL ONE (11:20)
[2019-02-27] MEDS ORDERED: ENOXAPARIN SODIUM 40 MG/0.4 ML SYRINGE SQ ONE (11:20)
[2019-02-27] MEDS: FUROSEMIDE 10 MG/ML 2ML VIAL IV SCH ×2 (11:30→23:30)
--- NOTE | 2019-02-27 11:49 | NUR ---
[facility] CONSULT PATIENT ASSESSED REQUESTED: PATIENT PRESENTS WITH MODERATE AMOUNT OF SEROUS/ YELLOWISH DRAINAGE TO AN OPEN AREA ALONG MID STERNAL SURGICAL INCISION; [facility] RECOMMENDATIONS SUBMITTED. Addendum: 02/27/19 at 1151 by TAMIA POWER LVN Amended: Links added.
[2019-02-27] MEDS ORDERED: AMIO200T5 PO (12:15)
[2019-02-27] MEDS ORDERED: ACET325T51 PO (12:15)
[2019-02-27] MEDS ORDERED: FE F1CAP8 PO (12:15)
[2019-02-27] MEDS ORDERED: MELO7.5T12 PO (12:15)
[2019-02-27] MEDS ORDERED: METO50TA18 PO (12:18)
[2019-02-27] MEDS ORDERED: ASPI-1026 PO (12:18)
[2019-02-27] MEDS ORDERED: FURO20TA4 PO (12:18)
[2019-02-27] MEDS ORDERED: ATOR20TA65 PO (12:18)
[2019-02-27] MEDS ORDERED: HYDR-3421 PO (12:18)
[2019-02-27] MEDS ORDERED: POLY17PO4 PO (12:18)
[2019-02-27] MEDS ORDERED: FLUO20CA30 PO (12:18)
[2019-02-27] MEDS ORDERED: HYDROXYZINE HCL 25 MG TABLET PO PRN (12:45)
[2019-02-27] MEDS ORDERED: MELOXICAM 7.5 MG TABLET PO PRN (12:45)
[2019-02-27] MEDS ORDERED: FLUTICASONE PROPIONATE 50MCG/SPRAY 16 GM BOTTLE NS PRN (12:45)
--- NOTE | 2019-02-27 14:16 | NUR ---
DCP:RETURN TO [facility] met with pt who states that he was here last week and was [place] [facility] [place]. Pt states he hopes that he will be able to return there [place] for finish SNF stay for rehab. Prior to SNF, pt lives at home alone, independent, no DME or in home care services. Pt works and drives. Pt waiting for MD recommendations. Plan is [facility] if MD agreeable Addendum: 02/27/19 at 1420 by HECTOR BLAIR Amended: Links added.
[2019-02-27] MEDS ORDERED: VANCOMYCIN PROTOCOL PER PHARMACY IV SCH (17:00)
[2019-02-27] MEDS: CEFTAZIDIME PENTAHYDRATE 1 GM/VIAL IVP SCH (17:00)
[2019-02-27] MEDS: SODIUM CHLORIDE 0.9% 1000ML 1,000 ML IV SCH ×2 (19:45→23:13)
[2019-02-27] MEDS ORDERED: VANCOMYCIN 2 GM in SODIUM CHLORIDE 0.9% 500ML 500 ML IV ONE (20:30)
[2019-02-27] MEDS ORDERED: AMIODARONE HCL 200 MG TABLET PO ONE (20:51)
[2019-02-27] MEDS ORDERED: ATORVASTATIN CALCIUM 20 MG TABLET ONE (20:51)
[2019-02-27] MEDS ORDERED: TAMSULOSIN HCL 0.4 MG CAP.ER.24H ONE (20:51)
[2019-02-27] MEDS ORDERED: VANCOMYCIN 1GM+NS 250ML 250 ML IV ONE (20:56)
[2019-02-27] MEDS ORDERED: FUROSEMIDE 20 MG TABLET ONE (20:56)
[2019-02-27] MEDS: ATORVASTATIN CALCIUM 20 MG TABLET PO SCH (21:00)
[2019-02-27] MEDS: METOPROLOL TARTRATE 50 MG TAB PO SCH (21:00)
[2019-02-27] MEDS: TAMSULOSIN HCL 0.4 MG CAP.ER.24H PO SCH (21:00)
[2019-02-27] MEDS: AMIODARONE HCL 200 MG TABLET PO SCH (21:00)
[2019-02-27] MEDS: FUROSEMIDE 20 MG TABLET PO SCH (21:00)
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
[2019-02-27 22:23] VITALS: BP 103/56
[2019-02-27] MEDS: ACETAMINOPHEN 325 MG TAB PO PRN (23:20)
[2019-02-28 03:04] VITALS: BP_SYST 112; BP_SYST 148; BP_DIAS 51; BP_DIAS 83
[2019-02-28] MEDS: CEFTAZIDIME PENTAHYDRATE 1 GM/VIAL IVP SCH ×3 (03:09→16:32)
[2019-02-28 03:56] LABS: BASOPHILS % (AUTO) 0.5 % (0.0-5.0); EOSINOPHILS % (AUTO) 0.5 % (0.0-8.0); LYMPHOCYTES % (AUTO) 10.9 % (21.0-51.0); MEAN CORPUSCULAR HEMOGLOBIN 28.9 pg (27.0-33.0); MEAN CORPUSCULAR HGB CONC 34.1 g/dL (32.0-36.0); MONOCYTES % (AUTO) 6.9 % (3.0-13.0); NEUTROPHILS % (AUTO) 81.2 % (40.0-77.0); PLATELET COUNT (AUTO) 464 K/uL (130-400); RED BLOOD CELL COUNT(AUTO) 3.06 MIL/uL (4.50-6.20); RED CELL DISTRIBUTION WIDTH 15.4 % (11.0-15.5); WHITE BLOOD COUNT (AUTO) 9.7 K/uL (4.8-10.8)
[2019-02-28 04:05] LABS: CREATININE 1.2 mg/dL (0.5-1.5); POTASSIUM 3.8 mmol/L (3.5-5.1)
[2019-02-28] MEDS: VANCOMYCIN 1GM+NS 250ML 250 ML IV SCH ×2 (04:59→18:07)
[2019-02-28] MEDS: ACETAMINOPHEN 325 MG TAB PO PRN (05:38)
[2019-02-28] MEDS: LEVOTHYROXINE 112 MCG TABLET PO SCH (06:16)
[2019-02-28] MEDS: CEFTRIAXONE SODIUM 1 GM IVP SCH ×2 (06:26→18:07)
[2019-02-28] MEDS: ZOSYN 3.375GM+NS 50ML 50 ML IV SCH ×3 (06:37→23:01)
[2019-02-28 07:15] VITALS: BP 130/63
[2019-02-28] MEDS: ASPIRIN 325 MG TABLET PO SCH (09:00)
[2019-02-28] MEDS: FE FUMARATE/FA/MV, MIN COMB#15 1 TAB PO SCH (10:13)
[2019-02-28] MEDS: AMIODARONE HCL 200 MG TABLET PO SCH ×2 (10:13→19:52)
[2019-02-28] MEDS: ASPIRIN 81MG TAB.CHEW PO SCH (10:14)
[2019-02-28] MEDS: METOPROLOL TARTRATE 50 MG TAB PO SCH ×2 (10:14→19:53)
[2019-02-28] MEDS: FUROSEMIDE 20 MG TABLET PO SCH ×2 (10:14→19:53)
[2019-02-28] MEDS: FAMOTIDINE 20MG TAB 20 MG TAB PO SCH ×2 (10:14→19:52)
[2019-02-28] MEDS: FLUOXETINE HCL 20 MG CAPSULE PO SCH (10:15)
[2019-02-28] MEDS: POLYETHYLENE GLYCOL 3350 17 GM POWD.PACK PO SCH (10:15)
[2019-02-28] MEDS: ENOXAPARIN SODIUM 40 MG/0.4 ML SYRINGE SQ SCH (10:15)
[2019-02-28] MEDS: FUROSEMIDE 10 MG/ML 2ML VIAL IV SCH ×2 (10:18→23:30)
[2019-02-28 11:00] VITALS: BP 111/57
[2019-02-28 15:00] VITALS: BP 101/52
[2019-02-28] MEDS: SODIUM CHLORIDE 0.9% 1000ML 1,000 ML IV SCH (15:45)
[2019-02-28 19:00] VITALS: BP 120/76
[2019-02-28] MEDS: TAMSULOSIN HCL 0.4 MG CAP.ER.24H PO SCH (19:52)
[2019-02-28] MEDS: ATORVASTATIN CALCIUM 20 MG TABLET PO SCH (19:53)
--- NOTE | 2019-02-28 21:30 | NUR ---
WOUND CARE COMPLETE. PT STATES NO PAIN TO SITE. DOES COMPLAIN OF PAIN TO RIGHT SHOULDER. ABLE TO AMBULATE WITH MINIMAL ASSIST. CONTINUES WITH SEROUS DRAINAGE TO CHEST INCISION SITE.
[2019-02-28 23:10] VITALS: BP 141/78
[2019-03-01] MEDS: CEFTAZIDIME PENTAHYDRATE 1 GM/VIAL IVP SCH ×3 (01:13→17:05)
[2019-03-01 03:23] VITALS: BP 147/65
[2019-03-01 04:32] LABS: HEMATOCRIT 25.1 % (42-54); MEAN CORPUSCULAR HEMOGLOBIN 29.1 pg (27.0-33.0); MEAN CORPUSCULAR HGB CONC 34.4 g/dL (32.0-36.0); MEAN CORPUSCULAR VOLUME 84.6 fL (79-99); PLATELET COUNT (AUTO) 430 K/uL (130-400); RED BLOOD CELL COUNT(AUTO) 2.96 MIL/uL (4.50-6.20); RED CELL DISTRIBUTION WIDTH 15.3 % (11.0-15.5); WHITE BLOOD COUNT (AUTO) 7.8 K/uL (4.8-10.8)
[2019-03-01 04:38] LABS: CREATININE 1.1 mg/dL (0.5-1.5); POTASSIUM 3.8 mmol/L (3.5-5.1)
[2019-03-01 05:26] LABS: BAND NEUTROPHILS % (MANUAL) 7 % (0-2); BASOPHILS % (MANUAL) 1 % (0-2); EOSINOPHILS % (MANUAL) 3 % (1-6); LYMPHOCYTES % (MANUAL) 17 % (22-44); MAN.DIFF COMMENT-IMPRESSION MANUAL DIF; MONOCYTES % (MANUAL) 4 % (2-9); REACTIVE LYMPHOCYTES 1 % (0-0); SEGMENTED NEUTROPHILS % 67 % (40-70)
[2019-03-01 05:27] LABS: PLATELET MORPHOLOGY COMMENT SLIGHT INCREASED
[2019-03-01] MEDS ORDERED: SPIRONOLACTONE 25 MG TAB ONE (05:37)
[2019-03-01] MEDS: ZOSYN 3.375GM+NS 50ML 50 ML IV SCH ×3 (05:41→21:02)
[2019-03-01] MEDS: LEVOTHYROXINE 112 MCG TABLET PO SCH (05:41)
[2019-03-01] MEDS: CEFTRIAXONE SODIUM 1 GM IVP SCH ×2 (05:41→18:34)
[2019-03-01] MEDS: VANCOMYCIN 1GM+NS 250ML 250 ML IV SCH ×2 (05:41→17:53)
[2019-03-01] MEDS: SODIUM CHLORIDE 0.9% 1000ML 1,000 ML IV SCH (05:48)
[2019-03-01 07:00] VITALS: BP 115/67
[2019-03-01] MEDS: FE FUMARATE/FA/MV, MIN COMB#15 1 TAB PO SCH (08:28)
[2019-03-01] MEDS: FAMOTIDINE 20MG TAB 20 MG TAB PO SCH ×2 (08:28→20:13)
[2019-03-01] MEDS: FUROSEMIDE 20 MG TABLET PO SCH ×2 (08:28→20:13)
[2019-03-01] MEDS: FLUOXETINE HCL 20 MG CAPSULE PO SCH (08:28)
[2019-03-01] MEDS: METOPROLOL TARTRATE 50 MG TAB PO SCH ×2 (08:28→20:13)
[2019-03-01] MEDS: ASPIRIN 325 MG TABLET PO SCH (08:29)
[2019-03-01] MEDS: POLYETHYLENE GLYCOL 3350 17 GM POWD.PACK PO SCH (08:29)
[2019-03-01] MEDS: AMIODARONE HCL 200 MG TABLET PO SCH ×2 (08:29→20:12)
[2019-03-01] MEDS: ENOXAPARIN SODIUM 40 MG/0.4 ML SYRINGE SQ SCH (08:30)
[2019-03-01] MEDS: ASPIRIN 81MG TAB.CHEW PO SCH (08:35)
[2019-03-01 11:00] VITALS: BP 111/59
[2019-03-01] MEDS: FUROSEMIDE 10 MG/ML 2ML VIAL IV SCH (12:27)
[2019-03-01 15:00] VITALS: BP 108/58
[2019-03-01 18:43] VITALS: BP 123/67
[2019-03-01] MEDS: ATORVASTATIN CALCIUM 20 MG TABLET PO SCH (20:12)
[2019-03-01] MEDS: TAMSULOSIN HCL 0.4 MG CAP.ER.24H PO SCH (20:12)
[2019-03-01 23:10] VITALS: BP 119/63
[2019-03-02] MEDS: CEFTAZIDIME PENTAHYDRATE 1 GM/VIAL IVP SCH ×3 (01:18→17:14)
[2019-03-02 03:26] VITALS: BP 116/65
[2019-03-02] MEDS: VANCOMYCIN 1GM+NS 250ML 250 ML IV SCH ×2 (05:20→17:15)
[2019-03-02 05:45] LABS: HEMATOCRIT 25.8 % (42-54); MEAN CORPUSCULAR HEMOGLOBIN 28.6 pg (27.0-33.0); MEAN CORPUSCULAR HGB CONC 33.8 g/dL (32.0-36.0); MEAN CORPUSCULAR VOLUME 84.7 fL (79-99); NUCLEATED RED BLOOD CELLS 0.1 % (0.0-0.19); PLATELET COUNT (AUTO) 456 K/uL (130-400); RED BLOOD CELL COUNT(AUTO) 3.04 MIL/uL (4.50-6.20); RED CELL DISTRIBUTION WIDTH 15.5 % (11.0-15.5); WHITE BLOOD COUNT (AUTO) 7.3 K/uL (4.8-10.8)
[2019-03-02 06:10] LABS: CREATININE 1.2 mg/dL (0.5-1.5)
[2019-03-02] MEDS: LEVOTHYROXINE 112 MCG TABLET PO SCH (06:30)
[2019-03-02] MEDS: CEFTRIAXONE SODIUM 1 GM IVP SCH (06:31)
[2019-03-02] MEDS: ZOSYN 3.375GM+NS 50ML 50 ML IV SCH (06:31)
[2019-03-02 06:33] LABS: BAND NEUTROPHILS % (MANUAL) 4 % (0-2); BASOPHILS % (MANUAL) 1 % (0-2); LYMPHOCYTES % (MANUAL) 20 % (22-44); MAN.DIFF COMMENT-IMPRESSION MANUAL DIFFERENTIAL; MONOCYTES % (MANUAL) 4 % (2-9); PLATELET MORPHOLOGY COMMENT SLIGHT INCREASED; REACTIVE LYMPHOCYTES 1 % (0-0); SEGMENTED NEUTROPHILS % 70 % (40-70)
[2019-03-02 07:00] VITALS: BP 135/67
--- NOTE | 2019-03-02 07:40 | NUR ---
ASSESSMENT ENCOUNTERED PT A&OX3, CALM COOPERATIVE AND DOES NOT APPEAR TO BE IN ANY DISTRESS NOR ANY NEURO DEFICITS PRESENT. STERNAL INCISION WITH YELLOW DRAINAGE PRESENT TO INFERIOR PORTION, PT IS AMBULATORY, GAIT STEADY AND STRONG WITH STAND BY ASSIST, CALL LIGHT WITHIN REACH, FAMILY AT BEDSIDE.
[2019-03-02] MEDS: SODIUM CHLORIDE 0.9% 1000ML 1,000 ML IV SCH (07:45)
[2019-03-02] MEDS ORDERED: ENOXAPARIN SODIUM 40 MG/0.4 ML SYRINGE SQ SCH (07:45)
[2019-03-02] MEDS: FE FUMARATE/FA/MV, MIN COMB#15 1 TAB PO SCH (09:03)
[2019-03-02] MEDS: FAMOTIDINE 20MG TAB 20 MG TAB PO SCH ×2 (09:03→20:16)
[2019-03-02] MEDS: FLUOXETINE HCL 20 MG CAPSULE PO SCH (09:03)
[2019-03-02] MEDS: ENOXAPARIN SODIUM 120 MG/0.8ML SQ SCH ×2 (09:03→20:17)
[2019-03-02] MEDS: FUROSEMIDE 20 MG TABLET PO SCH ×3 (09:03→20:17)
[2019-03-02] MEDS: METOPROLOL TARTRATE 50 MG TAB PO SCH ×2 (09:04→20:16)
[2019-03-02] MEDS: ASPIRIN 325 MG TABLET PO SCH (09:04)
[2019-03-02] MEDS: AMIODARONE HCL 200 MG TABLET PO SCH ×2 (09:04→20:16)
[2019-03-02] MEDS: POLYETHYLENE GLYCOL 3350 17 GM POWD.PACK PO SCH (09:04)
[2019-03-02 11:00] VITALS: BP 115/58
[2019-03-02 15:00] VITALS: BP 108/54
[2019-03-02 19:00] VITALS: BP 128/64
[2019-03-02] MEDS: TAMSULOSIN HCL 0.4 MG CAP.ER.24H PO SCH (20:16)
[2019-03-02] MEDS: ATORVASTATIN CALCIUM 20 MG TABLET PO SCH (20:17)
[2019-03-02 23:00] VITALS: BP 122/76
[2019-03-03] VITALS (26 sets, daily range): BP systolic 19–132; BP diastolic 49–71
[2019-03-03] MEDS: CEFTAZIDIME PENTAHYDRATE 1 GM/VIAL IVP SCH ×3 (00:19→17:47)
[2019-03-03] MEDS: SODIUM CHLORIDE 0.9% 1000ML 1,000 ML IV SCH (03:25)
[2019-03-03 03:46] LABS: HEMATOCRIT 27.2 % (42-54); MEAN CORPUSCULAR HEMOGLOBIN 28.7 pg (27.0-33.0); MEAN CORPUSCULAR HGB CONC 33.7 g/dL (32.0-36.0); MEAN CORPUSCULAR VOLUME 85.3 fL (79-99); PLATELET COUNT (AUTO) 439 K/uL (130-400); RED BLOOD CELL COUNT(AUTO) 3.18 MIL/uL (4.50-6.20); WHITE BLOOD COUNT (AUTO) 7.4 K/uL (4.8-10.8)
[2019-03-03 04:06] LABS: PHOSPHORUS 3.3 mg/dL (2.5-4.9)
[2019-03-03 04:13] LABS: B-TYPE NATRIURETIC PEPTIDE 301 pg/mL (0-100)
[2019-03-03 04:48] LABS: ERYTHROCYTE SEDIMENTATION RATE > 120 MM/HR (0-20)
[2019-03-03] MEDS: VANCOMYCIN 1GM+NS 250ML 250 ML IV SCH ×2 (05:45→17:48)
[2019-03-03] MEDS: LEVOTHYROXINE 112 MCG TABLET PO SCH (05:45)
--- NOTE | 2019-03-03 07:30 | NUR ---
ASSESSMENT ENCOUNTERED PT UP IN CHAIR, A&OX3, CALM COOPERATIVE AND DOES NOT APPEAR TO BE IN ANY DISTRESS NOR ANY NEURO DEFICITS PRESENT. PT DENIES PAIN, SOB, NAUSEA. STERNAL DRESSING WITH YELLOW FLUID PRESENT BUT NO SANGUINEOUS DRAINAGE. PT IS NPO FOR PENDING STERNAL DRAINAGE BY DR VARNER. CALL LIGHT WITHIN REACH, FAMILY AT BEDSIDE.
[2019-03-03] MEDS: FAMOTIDINE 20MG TAB 20 MG TAB PO SCH ×2 (09:00→20:20)
[2019-03-03] MEDS: ASPIRIN 325 MG TABLET PO SCH (09:00)
[2019-03-03] MEDS: FUROSEMIDE 20 MG TABLET PO SCH ×3 (09:00→20:20)
[2019-03-03] MEDS: POLYETHYLENE GLYCOL 3350 17 GM POWD.PACK PO SCH (09:00)
[2019-03-03] MEDS: FLUOXETINE HCL 20 MG CAPSULE PO SCH (09:00)
[2019-03-03] MEDS: FE FUMARATE/FA/MV, MIN COMB#15 1 TAB PO SCH (09:00)
[2019-03-03 10:07] LABS: INR 1.13 (0.85-1.15); PARTIAL THROMBOPLASTIN TIME 32.1 SEC (26.3-35.5); PROTHROMBIN TIME 11.8 SEC (9.6-11.6)
[2019-03-03] MEDS: METOPROLOL TARTRATE 50 MG TAB PO SCH ×2 (10:33→20:20)
[2019-03-03] MEDS: AMIODARONE HCL 200 MG TABLET PO SCH ×2 (10:33→20:20)
[2019-03-03] MEDS ORDERED: SUCCINYLCHOLINE 200MG/10ML SYR ONE (14:30)
[2019-03-03] MEDS ORDERED: ONDANSETRON HCL 4 MG/2 ML VIAL ONE (14:30)
[2019-03-03] MEDS ORDERED: GLYCOPYRROLATE 1 MG/5 ML SYRINGE ONE (14:30)
[2019-03-03] MEDS ORDERED: FENTANYL CITRATE PF 50 MCG/1 ML 2ML VIAL ONE (14:30)
[2019-03-03] MEDS ORDERED: LIDOCAINE PF 2% 5ML ABBOJECT ONE ×2 (14:30→14:32)
[2019-03-03] MEDS ORDERED: DEXAMETHASONE SOD PHOSPHATE 10MG/ML 1ML VIAL ONE (14:30)
[2019-03-03] MEDS ORDERED: PROPOFOL 10 MG/ML 20ML VIAL IV ONE (14:31)
[2019-03-03] MEDS ORDERED: ROCURONIUM 10MG/1ML SYR 10 MG/ML ML ONE (14:31)
[2019-03-03] MEDS ORDERED: NEOSTIGMINE 5MG/5ML SYR IV ONE (14:31)
[2019-03-03] MEDS ORDERED: ETOMIDATE 2 MG/ML 10 ML VIAL ONE (14:32)
[2019-03-03] MEDS ORDERED: BACITRACIN 50,000 UNIT VIAL ONE (14:57)
[2019-03-03] MEDS ORDERED: TRAMADOL HCL 50 MG TABLET PO PRN (15:00)
[2019-03-03] MEDS ORDERED: NOREPINEPHRINE BITARTRATE 1 MG/1 ML ML IV ONE (15:19)
--- NOTE | 2019-03-03 17:03 | NUR ---
DONAL SCREEN - LOS X 5 DAYS PT ADMITTED FOR DEEP WOUND STERNAL INFECTION. PT NPO AT TIME OF SCREEN SECONDARY TO PENDING PROCEDURE; RECOMMEND TO RESUME HEART HEALTHY DIET ORDER PT PREVIOUSLY TOLERATED AT 100% PO INTAKE. PT WITH INCREASED PROTEIN NEEDS SECONDARY TO WOUND HEALING;RECOMMEND TO ADD MAT BID FOR WOUND HEALING SUPPORT WELL VITAMIN C, ZNSO4 DAILY FOR WOUND HEALING SUPPORT. PT LBM 03/01/19. PT MONITORED LABS: H/H 9.1/27.2, CA 8.2, CRP 77.3, BNP 301, ALB 2.0. RD TO CONTINUE TO MONITOR. PLEASE NOTIFY DONAL ADDITIONAL NUTRITION CONCERNS ARISE. THANK YOU. Addendum: 03/03/19 at [address] Amended: Links added.
--- NOTE | 2019-03-03 17:30 | NUR ---
POST PROCEDURE RECEIVED PT FROM PACU, IN SEMI MCCARTHY'S POSITION, A&OX3, GAG REFLEX INTACT, DOES NOT APPEAR TO BE IN ANY DISTRESS NOR ANY NEURO DEFICITS PRESENT. STERNAL DRESSING DRY AND INTACT WITH IODINE IRRIGATION IN PLACE AND SEROSANGUINEOUS DRAINAGE INTO ATRIUM. PT IS RESTING COMFORTABLY, CALL LIGHT WITHIN REACH, FAMILY AT BEDSIDE.
[2019-03-03] MEDS: ACETAMINOPHEN 325 MG TAB PO PRN (18:10)
--- NOTE | 2019-03-03 19:28 | NUR ---
ASSESSMENT PATIENT IS RESTING IN BED. ALERT AND ORIENTED X4. FAMILY IS AT BEDSIDE. NO COMPLAINTS OF PAIN AT THIS TIME. NO SIGNS OF DISTRESS. NO SHORTNESS OF BREATH. STERNUM DRESSING IS CLEAN DRY AND INTACT WITH IODINE IRRIGATION WITH CHEST TUBE IN PLACE THAT IS PATENT AND DRAINING WITH LOW INTERMITTENT SUCTION. PATIENT HAS CALL LIGHT AND BEDSIDE TABLE WITHIN REACH. PATIENT VOICES NO QUESTIONS, CONCERNS, OR NEEDS AT THIS TIME. REINFORCED PATIENT TO USE CALL LIGHT FOR ANY NEEDS.
[2019-03-03] MEDS: ATORVASTATIN CALCIUM 20 MG TABLET PO SCH (20:20)
[2019-03-03] MEDS: TAMSULOSIN HCL 0.4 MG CAP.ER.24H PO SCH (20:20)
--- NOTE | 2019-03-04 | NUR ---
ASSESSMENT PATIENT IS RESTING IN BED. ALERT AND ORIENTED X3. PATIENT COMPLAINING OF PAIN AND WILL BE GIVEN PRN PAIN MEDICATION. NO SIGNS OF DISTRESS. NO SHORTNESS OF BREATH. PATIENT HAS CALL LIGHT AND BEDSIDE TABLE WITHIN REACH. NO QUESTIONS, CONCERNS, OR NEEDS AT THIS TIME.
[2019-03-04] MEDS: TRAMADOL HCL 50 MG TABLET PO PRN ×2 (00:28→06:26)
[2019-03-04] MEDS: CEFTAZIDIME PENTAHYDRATE 1 GM/VIAL IVP SCH ×3 (00:28→17:12)
[2019-03-04 04:00] VITALS: BP 146/74
[2019-03-04 04:52] LABS: HEMATOCRIT 25.2 % (42-54); MEAN CORPUSCULAR HGB CONC 34.8 g/dL (32.0-36.0); MEAN CORPUSCULAR VOLUME 83.5 fL (79-99); PLATELET COUNT (AUTO) 410 K/uL (130-400); RED BLOOD CELL COUNT(AUTO) 3.02 MIL/uL (4.50-6.20); RED CELL DISTRIBUTION WIDTH 15.1 % (11.0-15.5); WHITE BLOOD COUNT (AUTO) 8.1 K/uL (4.8-10.8)
[2019-03-04 05:16] LABS: CREATININE 0.9 mg/dL (0.5-1.5)
[2019-03-04] MEDS: LEVOTHYROXINE 112 MCG TABLET PO SCH (06:25)
[2019-03-04] MEDS: VANCOMYCIN 1GM+NS 250ML 250 ML IV SCH (06:25)
[2019-03-04 07:09] VITALS: BP 139/63
[2019-03-04] MEDS: ASPIRIN 325 MG TABLET PO SCH (09:16)
[2019-03-04] MEDS: FUROSEMIDE 20 MG TABLET PO SCH ×3 (09:16→21:14)
[2019-03-04] MEDS: POLYETHYLENE GLYCOL 3350 17 GM POWD.PACK PO SCH (09:17)
[2019-03-04] MEDS: METOPROLOL TARTRATE 50 MG TAB PO SCH ×2 (09:17→21:00)
[2019-03-04] MEDS: FAMOTIDINE 20MG TAB 20 MG TAB PO SCH ×2 (09:17→21:14)
[2019-03-04] MEDS: FE FUMARATE/FA/MV, MIN COMB#15 1 TAB PO SCH (09:17)
[2019-03-04] MEDS: FLUOXETINE HCL 20 MG CAPSULE PO SCH (09:17)
[2019-03-04] MEDS: AMIODARONE HCL 200 MG TABLET PO SCH ×2 (09:17→21:14)
[2019-03-04] MEDS: ENOXAPARIN SODIUM 30 MG/0.3 ML SQ SCH (09:18)
[2019-03-04 11:04] VITALS: BP 99/51
--- NOTE | 2019-03-04 11:26 | NUR ---
DC PLAN PATIENT HAD PROCEDURE BY DR. KNIGHT YESTERDAY FOR INCISION AND DRAINAGE. ACCORDING TO DAUGHTER HE TOLD THEM THAT WAS GOING TO LEAVE DRAIN IN PLACE AND GO BACK IN THREE DAYS TO SEE IF FURTHER DEBRIDEMENT WOULD BE NEEDED. DAUGHTER EAGER FOR REFERRAL TO LT[facility]. SPOKE TO PERRY REGARDING IF SHE HAD GOTTEN REFERRAL YET. LET PERRY KNOW THERE WAS AN ORDER FOR LTAC. GAVE PACKET. I HAD SPOKEN TO INSURANCE AND THEY SAID THAT LIKELY WOULD NOT BE APPROVED. PATIENT ON 2 ANTIBIOTICS NO COMPLEX WOUND CARE. IF ALL CAN BE DONE AT SNF THEN THEY WILL ONLY APPROVE SNF. STILL SUBMITTED WILL ASK MDS ON CASE WHO WILL DO PEER TO PEER. CM WILL CONTINUE TO FOLLOW. Addendum: 03/04/19 at 1130 by ELIO QUINTERO RN CM Amended: Links added.
--- NOTE | 2019-03-04 14:24 | NUR ---
LANETTE PLAN KO SIGNED FOR LT[facility]. INFORMATION SENT. PACKET GIVEN TO PERRY. GOT DR. HARRIS TO AGREE TO PEER TO PEER. Addendum: 03/04/19 at 1425 by ELIO QUINTERO RN CM Amended: Links added.
[2019-03-04 15:55] VITALS: BP 101/53
[2019-03-04 20:24] VITALS: BP 111/51
[2019-03-04] MEDS: ATORVASTATIN CALCIUM 20 MG TABLET PO SCH (21:14)
[2019-03-04] MEDS: TAMSULOSIN HCL 0.4 MG CAP.ER.24H PO SCH (21:14)
[2019-03-04] MEDS: ACETAMINOPHEN 325 MG TAB PO PRN (21:19)
[2019-03-05] VITALS (7 sets, daily range): BP systolic 107–131; BP diastolic 55–70
[2019-03-05] MEDS: CEFTAZIDIME PENTAHYDRATE 1 GM/VIAL IVP SCH ×3 (01:42→17:20)
[2019-03-05] MEDS: SODIUM CHLORIDE 0.9% 1000ML 1,000 ML IV SCH (01:43)
[2019-03-05 03:59] LABS: HEMATOCRIT 24.7 % (42-54); MEAN CORPUSCULAR HGB CONC 33.9 g/dL (32.0-36.0); MEAN CORPUSCULAR VOLUME 85.5 fL (79-99); NUCLEATED RED BLOOD CELLS 0.1 % (0.0-0.19); PLATELET COUNT (AUTO) 370 K/uL (130-400); RED CELL DISTRIBUTION WIDTH 15.3 % (11.0-15.5); WHITE BLOOD COUNT (AUTO) 7.6 K/uL (4.8-10.8)
[2019-03-05 04:11] LABS: CARBON DIOXIDE 29 mmol/L (21-32); CHLORIDE 100 mmol/L (101-111); CREATININE 1.2 mg/dL (0.5-1.5); GLOMERULAR FILTR. RATE CALC 64 mL/min (>60); GLUCOSE,RANDOM 96 mg/dL (70-105); POTASSIUM 3.6 mmol/L (3.5-5.1); SODIUM SERUM 137 mmol/L (136-145); UREA NITROGEN, BLOOD 16 mg/dL (7-18)
--- NOTE | 2019-03-05 04:52 | NUR ---
Assessment Patient a/o x3. Resting in bed. Denies pain or sob. Midsternal dressing in place. Iodine drip to chest incision, connected to atrium, Continuos suction. Output serosanguineous. Patient using urinal. Denies urinary issues. PM Metoprolol not administered,HR 50-58. Will continue to monitor.
[2019-03-05 05:08] LABS: ERYTHROCYTE SEDIMENTATION RATE 134 MM/HR (0-20)
[2019-03-05] MEDS: LEVOTHYROXINE 112 MCG TABLET PO SCH (05:48)
[2019-03-05] MEDS: POTASSIUM CHLORIDE 20 MEQ ERTAB PO PRN ×3 (05:51→20:07)
[2019-03-05] MEDS: ASPIRIN 325 MG TABLET PO SCH (08:50)
[2019-03-05] MEDS: FE FUMARATE/FA/MV, MIN COMB#15 1 TAB PO SCH (08:50)
[2019-03-05] MEDS: FAMOTIDINE 20MG TAB 20 MG TAB PO SCH ×2 (08:50→20:07)
[2019-03-05] MEDS: AMIODARONE HCL 200 MG TABLET PO SCH ×2 (08:50→20:07)
[2019-03-05] MEDS: FLUOXETINE HCL 20 MG CAPSULE PO SCH (08:51)
[2019-03-05] MEDS: FUROSEMIDE 20 MG TABLET PO SCH ×3 (08:51→20:07)
[2019-03-05] MEDS: POLYETHYLENE GLYCOL 3350 17 GM POWD.PACK PO SCH (08:51)
[2019-03-05] MEDS: METOPROLOL TARTRATE 50 MG TAB PO SCH ×2 (08:51→21:00)
[2019-03-05] MEDS: ENOXAPARIN SODIUM 30 MG/0.3 ML SQ SCH (08:52)
--- NOTE | 2019-03-05 13:33 | NUR ---
RD NOTIFICATION/ FOLLOW UP DIET: HEART HEALTHY. PT ADMITTED DUE TO SURGICAL WOUND INFECTION. PO INTAKE 50% AND HAS DECENT APPETITE PER PT. LBM: 03/05. PT LIKES TO DRINK ENSURE WITH MEALS. NO DIFFICULTY CHEWING OR SWALLOWING. NO NAUSEA, VOMITING OR DIARRHEA. RD RECOMMENDS CONTINUE CURRENT DIET. OFFER ENSURE WITH ALL MEALS. RECOMMEND MAT BID, 500MG VITAMIN C BID, 220MG ZINC SULFATE ONCE DAILY FOR 14 DAYS TO AID WOUND HEALING. RD WILL OCNTINUE TO MONITOR AND FOLLOW UP NEEDED. Addendum: 03/05/19 at [address] Amended: Links added.
--- NOTE | 2019-03-05 18:23 | NUR ---
DC PLAN SENT UPDATES TO INSURANCE. Addendum: 03/05/19 at 1824 by ELIO QUINTERO RN CM Amended: Links added.
[2019-03-05] MEDS: TAMSULOSIN HCL 0.4 MG CAP.ER.24H PO SCH (20:06)
[2019-03-05] MEDS: ATORVASTATIN CALCIUM 20 MG TABLET PO SCH (20:07)
[2019-03-06] MEDS: CEFTAZIDIME PENTAHYDRATE 1 GM/VIAL IVP SCH ×3 (03:12→20:55)
[2019-03-06 03:43] LABS: HEMATOCRIT 24.8 % (42-54); MEAN CORPUSCULAR HGB CONC 34.7 g/dL (32.0-36.0); MEAN CORPUSCULAR VOLUME 83.4 fL (79-99); PLATELET COUNT (AUTO) 353 K/uL (130-400); RED BLOOD CELL COUNT(AUTO) 2.98 MIL/uL (4.50-6.20); RED CELL DISTRIBUTION WIDTH 15.2 % (11.0-15.5); WHITE BLOOD COUNT (AUTO) 7.5 K/uL (4.8-10.8)
[2019-03-06 04:00] VITALS: BP 118/58
[2019-03-06 04:00] LABS: B-TYPE NATRIURETIC PEPTIDE 176 pg/mL (0-100)
[2019-03-06 04:07] LABS: POTASSIUM 3.9 mmol/L (3.5-5.1)
[2019-03-06 04:28] LABS: THYROID STIMULATING HORMONE 17.5 uIU/mL (0.36-3.74)
[2019-03-06 04:29] LABS: % IRON SATURATION 10.5 % (30-44)
[2019-03-06] MEDS: LEVOTHYROXINE 112 MCG TABLET PO SCH (05:56)
[2019-03-06] MEDS: POTASSIUM CHLORIDE 20 MEQ ERTAB PO PRN (05:57)
[2019-03-06 07:45] VITALS: BP 107/54
[2019-03-06] MEDS: FE FUMARATE/FA/MV, MIN COMB#15 1 TAB PO SCH (09:02)
[2019-03-06] MEDS: FLUOXETINE HCL 20 MG CAPSULE PO SCH (09:02)
[2019-03-06] MEDS: AMIODARONE HCL 200 MG TABLET PO SCH ×2 (09:02→20:55)
[2019-03-06] MEDS: FAMOTIDINE 20MG TAB 20 MG TAB PO SCH ×2 (09:02→20:55)
[2019-03-06] MEDS: FUROSEMIDE 20 MG TABLET PO SCH ×3 (09:02→20:59)
[2019-03-06] MEDS: ASPIRIN 325 MG TABLET PO SCH (09:02)
[2019-03-06] MEDS: METOPROLOL TARTRATE 50 MG TAB PO SCH ×2 (09:02→20:55)
[2019-03-06] MEDS: POLYETHYLENE GLYCOL 3350 17 GM POWD.PACK PO SCH (09:03)
[2019-03-06] MEDS: ENOXAPARIN SODIUM 30 MG/0.3 ML SQ SCH (09:07)
[2019-03-06 11:53] VITALS: BP 111/60
[2019-03-06 16:24] VITALS: BP 107/62
[2019-03-06 19:24] VITALS: BP 101/51
--- NOTE | 2019-03-06 19:40 | NUR ---
ASSESSMENT PATIENT IS RESTING IN CHAIR. FAMILY AT BEDSIDE. ALERT AND ORIENTED X3. NO COMPLAINTS OF PAIN AT THIS TIME. NO SHORTNESS OF BREATH. NO SIGNS OF DISTRESS. PATIENT HAS IODINE IRRIGATION AND CHEST TUBE CHAMBER IN PLACE TO WALL SUCTION. PATIENT WAS ASSISTED TO BATHROOM FOR BM. THEN ASSISTED BACK TO BED. MADE COMFORTABLE. CALL LIGHT WITHIN REACH. BEDSIDE TABLE WITHIN REACH. NO QUESTIONS, CONCERNS, OR NEEDS AT THIS TIME.
[2019-03-06] MEDS: TAMSULOSIN HCL 0.4 MG CAP.ER.24H PO SCH (20:55)
[2019-03-06] MEDS: ATORVASTATIN CALCIUM 20 MG TABLET PO SCH (20:55)
[2019-03-06 23:20] VITALS: BP 133/67
[2019-03-07] VITALS (7 sets, daily range): BP systolic 100–144; BP diastolic 9–72
--- NOTE | 2019-03-07 | NUR ---
ASSESSMENT PATIENT IS RESTING IN BED. NO COMPLAINTS OF PAIN AT THIS TIME. NO SIGNS OF DISTRESS. NO SHORTNESS OF BREATH. CALL LIGHT AND BEDSIDE TABLE WITHIN REACH. URINAL AT BEDSIDE. MIDSTERNAL WOULD CONTINUES WITH IODINE IRRIGATION AND CONNECTED TO CHEST TUBE CHAMBER AND WALL SUCTION. NO COMPLAINTS, QUESTIONS, OR NEEDS AT THIS TIME.
[2019-03-07] MEDS: ACETAMINOPHEN 325 MG TAB PO PRN (00:29)
--- NOTE | 2019-03-07 04:45 | NUR ---
ASSESSMENT PATIENT IS RESTING IN BED. NO COMPLAINTS OF PAIN AT THIS TIME. NO SIGNS OF DISTRESS. NO SHORTNESS OF BREATH. CALL LIGHT, URINAL, AND BEDSIDE TABLE WITHIN REACH. VOICES NO NEEDS AT THIS TIME.
--- NOTE | 2019-03-07 05:10 | NUR ---
CHLORIDE 86 REINALDO THERMAL TECHNICIAN VERBALLY MADE AWARE OF RESULT. NO ORDERS RECEIVED AT THIS TIME.
[2019-03-07] MEDS: LEVOTHYROXINE 112 MCG TABLET PO SCH (06:12)
[2019-03-07] MEDS: CEFTAZIDIME PENTAHYDRATE 1 GM/VIAL IVP SCH ×3 (06:12→21:58)
[2019-03-07] MEDS: POLYETHYLENE GLYCOL 3350 17 GM POWD.PACK PO SCH (09:00)
[2019-03-07] MEDS: FAMOTIDINE 20MG TAB 20 MG TAB PO SCH ×2 (09:05→20:48)
[2019-03-07] MEDS: FUROSEMIDE 20 MG TABLET PO SCH ×3 (09:06→20:48)
[2019-03-07] MEDS: AMIODARONE HCL 200 MG TABLET PO SCH ×2 (09:06→21:59)
[2019-03-07] MEDS: ASPIRIN 325 MG TABLET PO SCH (09:06)
[2019-03-07] MEDS: METOPROLOL TARTRATE 50 MG TAB PO SCH ×2 (09:06→20:48)
[2019-03-07] MEDS: FLUOXETINE HCL 20 MG CAPSULE PO SCH (09:06)
[2019-03-07] MEDS: FE FUMARATE/FA/MV, MIN COMB#15 1 TAB PO SCH (09:06)
[2019-03-07] MEDS: ENOXAPARIN SODIUM 30 MG/0.3 ML SQ SCH (09:09)
[2019-03-07] MEDS ORDERED: EPOETIN ALFA 10,000 UNIT/ML VIAL SQ SCH (19:45)
[2019-03-07] MEDS ORDERED: COMPOUND IV MISC 1 EACH IVSOLN MISC PRN (19:45)
[2019-03-07] MEDS: IRON SUCROSE COMPLEX 100 MG in SODIUM CHLORIDE 0.9% 50 ML IV SCH (20:47)
[2019-03-07] MEDS: ATORVASTATIN CALCIUM 20 MG TABLET PO SCH (20:47)
[2019-03-07] MEDS: TAMSULOSIN HCL 0.4 MG CAP.ER.24H PO SCH (20:48)
[2019-03-07] MEDS: TRAMADOL HCL 50 MG TABLET PO PRN (20:55)
[2019-03-08 03:25] VITALS: BP 106/60
[2019-03-08 04:08] LABS: HEMATOCRIT 25.2 % (42-54); MEAN CORPUSCULAR HEMOGLOBIN 28.9 pg (27.0-33.0); MEAN CORPUSCULAR HGB CONC 34.9 g/dL (32.0-36.0); MEAN CORPUSCULAR VOLUME 82.8 fL (79-99); PLATELET COUNT (AUTO) 344 K/uL (130-400); RED BLOOD CELL COUNT(AUTO) 3.05 MIL/uL (4.50-6.20); RED CELL DISTRIBUTION WIDTH 15.2 % (11.0-15.5); WHITE BLOOD COUNT (AUTO) 6.4 K/uL (4.8-10.8)
[2019-03-08 04:25] LABS: CARBON DIOXIDE 31 mmol/L (21-32); CHLORIDE 98 mmol/L (101-111); CREATININE 1.1 mg/dL (0.5-1.5); GLOMERULAR FILTR. RATE CALC 71 mL/min (>60); GLUCOSE,RANDOM 90 mg/dL (70-105); POTASSIUM 3.9 mmol/L (3.5-5.1); SODIUM SERUM 135 mmol/L (136-145); UREA NITROGEN, BLOOD 18 mg/dL (7-18)
[2019-03-08 04:37] LABS: B-TYPE NATRIURETIC PEPTIDE 205 pg/mL (0-100)
[2019-03-08] MEDS: CEFTAZIDIME PENTAHYDRATE 1 GM/VIAL IVP SCH ×3 (06:01→21:03)
[2019-03-08] MEDS: LEVOTHYROXINE 125 MCG TABLET PO SCH (06:21)
[2019-03-08 07:45] VITALS: BP 107/62
[2019-03-08] MEDS: FLUOXETINE HCL 20 MG CAPSULE PO SCH (09:11)
[2019-03-08] MEDS: METOPROLOL TARTRATE 50 MG TAB PO SCH ×2 (09:11→21:03)
[2019-03-08] MEDS: AMIODARONE HCL 200 MG TABLET PO SCH ×2 (09:11→21:03)
[2019-03-08] MEDS: FAMOTIDINE 20MG TAB 20 MG TAB PO SCH ×2 (09:11→21:02)
[2019-03-08] MEDS: IRON SUCROSE COMPLEX 100 MG in SODIUM CHLORIDE 0.9% 50 ML IV SCH (09:13)
[2019-03-08] MEDS: FUROSEMIDE 20 MG TABLET PO SCH ×3 (09:13→21:03)
[2019-03-08] MEDS: ASPIRIN 325 MG TABLET PO SCH (09:14)
[2019-03-08] MEDS: FE FUMARATE/FA/MV, MIN COMB#15 1 TAB PO SCH (09:14)
[2019-03-08] MEDS: ENOXAPARIN SODIUM 30 MG/0.3 ML SQ SCH (09:14)
[2019-03-08] MEDS: POLYETHYLENE GLYCOL 3350 17 GM POWD.PACK PO SCH (09:20)
[2019-03-08 11:44] VITALS: BP_SYST 106; BP_SYST 123; BP_DIAS 52; BP_DIAS 70
[2019-03-08] MEDS: TRAMADOL HCL 50 MG TABLET PO PRN (13:13)
[2019-03-08 15:38] VITALS: BP 94/51
[2019-03-08 19:35] VITALS: BP 109/52
[2019-03-08] MEDS: ATORVASTATIN CALCIUM 20 MG TABLET PO SCH (21:02)
[2019-03-08] MEDS: TAMSULOSIN HCL 0.4 MG CAP.ER.24H PO SCH (21:03)
[2019-03-08] MEDS: ACETAMINOPHEN 325 MG TAB PO PRN (21:04)
[2019-03-08 23:30] VITALS: BP 107/65
[2019-03-09 04:22] VITALS: BP 107/62
[2019-03-09 05:02] LABS: INR 1.1 (0.85-1.15); PARTIAL THROMBOPLASTIN TIME 27.8 SEC (26.3-35.5); PROTHROMBIN TIME 11.3 SEC (9.6-11.6)
[2019-03-09] MEDS: CEFTAZIDIME PENTAHYDRATE 1 GM/VIAL IVP SCH ×2 (05:12→14:58)
[2019-03-09] MEDS: LEVOTHYROXINE 125 MCG TABLET PO SCH (05:12)
[2019-03-09 07:35] VITALS: BP 106/71
[2019-03-09] MEDS: IRON SUCROSE COMPLEX 100 MG in SODIUM CHLORIDE 0.9% 50 ML IV SCH (09:04)
[2019-03-09] MEDS: POLYETHYLENE GLYCOL 3350 17 GM POWD.PACK PO SCH (09:04)
[2019-03-09] MEDS: METOPROLOL TARTRATE 50 MG TAB PO SCH ×2 (09:05→21:00)
[2019-03-09] MEDS: ASPIRIN 325 MG TABLET PO SCH (09:05)
[2019-03-09] MEDS: FLUOXETINE HCL 20 MG CAPSULE PO SCH (09:05)
[2019-03-09] MEDS: FAMOTIDINE 20MG TAB 20 MG TAB PO SCH ×2 (09:05→20:14)
[2019-03-09] MEDS: AMIODARONE HCL 200 MG TABLET PO SCH ×2 (09:05→20:14)
[2019-03-09] MEDS: FE FUMARATE/FA/MV, MIN COMB#15 1 TAB PO SCH (09:05)
[2019-03-09] MEDS: FUROSEMIDE 20 MG TABLET PO SCH ×3 (09:06→20:14)
[2019-03-09] MEDS: ENOXAPARIN SODIUM 30 MG/0.3 ML SQ SCH (09:06)
--- NOTE | 2019-03-09 10:00 | NUR ---
SITTING IN CHAIR. DENIES ANY DISCOMFORT.
[2019-03-09 11:35] VITALS: BP 93/53
--- NOTE | 2019-03-09 12:00 | NUR ---
I/S ENCOURAGED, PULLING 1500.
--- NOTE | 2019-03-09 13:25 | NUR ---
DC PLAN SPOKE TO INSURANCE AND TO PERRY NO AUTH YET. HAS BEEN SUBMITTED UNDER MEDICAL REVIEW. Addendum: 03/09/19 at 1326 by ELIO QUINTERO RN CM Amended: Links added.
--- NOTE | 2019-03-09 15:00 | NUR ---
PICC LINE PLACED. STAT CHEST X-RAY ORDERED.
[2019-03-09 15:29] VITALS: BP 107/58
--- NOTE | 2019-03-09 16:00 | NUR ---
RESTING, N/C, DAUGHTER VISITING.
[2019-03-09 19:00] VITALS: BP 91/55
[2019-03-09] MEDS: ATORVASTATIN CALCIUM 20 MG TABLET PO SCH (20:14)
[2019-03-09] MEDS: TAMSULOSIN HCL 0.4 MG CAP.ER.24H PO SCH (20:14)
[2019-03-09 23:12] LABS: BASOPHILS % (AUTO) 0.8 % (0.0-5.0); EOSINOPHILS % (AUTO) 2.5 % (0.0-8.0); HEMATOCRIT 25.7 % (42-54); LYMPHOCYTES % (AUTO) 23.3 % (21.0-51.0); MEAN CORPUSCULAR HEMOGLOBIN 28.8 pg (27.0-33.0); MEAN CORPUSCULAR HGB CONC 34.7 g/dL (32.0-36.0); MEAN CORPUSCULAR VOLUME 83.1 fL (79-99); MONOCYTES % (AUTO) 7.2 % (3.0-13.0); NEUTROPHILS % (AUTO) 66.2 % (40.0-77.0); PLATELET COUNT (AUTO) 296 K/uL (130-400); RED CELL DISTRIBUTION WIDTH 15.2 % (11.0-15.5)
[2019-03-09 23:21] LABS: CREATININE 1.4 mg/dL (0.5-1.5); POTASSIUM 3.9 mmol/L (3.5-5.1)
[2019-03-09 23:37] VITALS: BP 117/68
[2019-03-10 03:55] VITALS: BP 116/63
--- NOTE | 2019-03-10 04:06 | NUR ---
PATIENT RESTING IN BED. MIDSTERNAL INCISION RESEARCH AGRICULTURAL ENGINEER. NO REDNESS. NO VISIBLE S/S OF INFECTION. INCISION APPROXIMATED. STATES HE FEELS BETTER. DOUBLE LUMEN PICC PLACED 03/09. NO ORDERS TO USE. PATIENT HAS 1+ PITTING EDEMA TO BLE. ON LASIX. CURRENTLY RECEIVING ABX. TOLERATING WELL. DENIES N/V/D OR ITCHING OR RASH. DENIES PAIN OR SOB AT THIS TIME.
[2019-03-10] MEDS: LEVOTHYROXINE 125 MCG TABLET PO SCH (06:34)
[2019-03-10 07:20] VITALS: BP 95/53
--- NOTE | 2019-03-10 08:45 | NUR ---
AM ASSESSMENT PT SITTING IN CARDIAC RECLINER, RESTING. A/O X 3. NO SOB. NO DISTRESS NOTED. DENIES CHEST PAIN OR DISCOMFORT. DENIES PALPITATIONS. DENIES INCISIONAL PAIN. TELE: SR. STERNAL INCISION WELL APPROX, NO DRAINAGE NOTED. STERNAL PRECAUTIONS REINFORCED. DENIES N/V AND/OR DIARRHEA. ESTIVEN PICC LINE ACCESSED. UP W/ASSISTANCE. INSTRUCTED TO CALL FOR ASSISTANCE. CALL ROBINSON W/IN REACH.
[2019-03-10] MEDS: IRON SUCROSE COMPLEX 100 MG in SODIUM CHLORIDE 0.9% 50 ML IV SCH (08:49)
[2019-03-10] MEDS: FE FUMARATE/FA/MV, MIN COMB#15 1 TAB PO SCH (08:49)
[2019-03-10] MEDS: AMIODARONE HCL 200 MG TABLET PO SCH ×2 (08:49→20:08)
[2019-03-10] MEDS: METOPROLOL TARTRATE 50 MG TAB PO SCH (08:49)
[2019-03-10] MEDS: FLUOXETINE HCL 20 MG CAPSULE PO SCH (08:49)
[2019-03-10] MEDS: FAMOTIDINE 20MG TAB 20 MG TAB PO SCH ×2 (08:49→20:08)
[2019-03-10] MEDS: ASPIRIN 325 MG TABLET PO SCH (08:50)
[2019-03-10] MEDS: ENOXAPARIN SODIUM 30 MG/0.3 ML SQ SCH (08:52)
[2019-03-10] MEDS: POLYETHYLENE GLYCOL 3350 17 GM POWD.PACK PO SCH (08:53)
[2019-03-10] MEDS: FUROSEMIDE 20 MG TABLET PO SCH ×3 (08:53→20:07)
--- NOTE | 2019-03-10 09:47 | NUR ---
ANTIBIOTIC THERAPY Spoke to regarding IV abx therapy for pt - pt to receive total of 4 weeks of fortaz, start date surgical date.
[2019-03-10 11:42] VITALS: BP 93/54
[2019-03-10] MEDS: CEFTAZIDIME PENTAHYDRATE 1 GM/VIAL IVP SCH ×2 (14:24→20:08)
--- NOTE | 2019-03-10 14:48 | NUR ---
DC PLAN INSURANCE CALLED SAID THAT PATIENT HAD BEEN DENIED [facility] EVEN AFTER PEER TO PEER. IRU HAS ALSO BEEN DENIED SON OF PATIENT HAD SUBMITTED SECONDARY APPEAL FOR IRU AND HAS ALSO BEEN DENIED. SAID THEY ARE WILLING TO DO SNF. PER DAUGHTER DOES NOT WANT SNF. SAID WILL DO HOME HEALTH. NEED TO ASK DR. MCKINNEY FOR ABX RECS AND LENGTH OF NEED. Addendum: 03/10/19 at 1451 by ELIO QUINTERO RN CM Amended: Links added.
--- NOTE | 2019-03-10 15:03 | NUR ---
RD FOLLOW UP Upon visit, Pt reports tolerating diet order with no report of GI distress and Good PO (100%). Pt LBM 03/09/19. Pt monitored labs: Cl 98, BUN 24, GFR 54, Fe 22, TIBC 209, %Sat 10.5, BNP 205. PICC placed for medications. Pt reports Feels better when walking. Recommend to continue current diet order. RD to continue to monitor. Please notify RD as nutritional concerns arise. Thank you. Addendum: 03/10/19 at [address] Amended: Links added.
[2019-03-10 15:16] VITALS: BP 100/53
[2019-03-10 18:57] VITALS: BP 98/59
--- NOTE | 2019-03-10 19:15 | NUR ---
DC PLAN INFO SENT TO [facility] REQUESTED BY DAUGHTER. IF [facility] CAN NOT GET ABX ALSO SENT TO [facility] FOR MEDICATION. INFO FOWARDED TO INSURANCE WELL FOR AUTH. JEANNINE WILL CONTINUE TO FOLLOW. Addendum: 03/10/19 at 1916 by ELIO QUINTERO RN CM Amended: Links added.
[2019-03-10] MEDS: TAMSULOSIN HCL 0.4 MG CAP.ER.24H PO SCH (20:08)
[2019-03-10] MEDS: ATORVASTATIN CALCIUM 20 MG TABLET PO SCH (20:08)
[2019-03-10] MEDS: POTASSIUM CHLORIDE 20 MEQ ERTAB PO PRN (20:08)
[2019-03-10 23:10] VITALS: BP 124/74
[2019-03-11] MEDS: ACETAMINOPHEN 325 MG TAB PO PRN (00:11)
[2019-03-11] MEDS: METOPROLOL TARTRATE 50 MG TAB PO SCH ×2 (00:12→08:53)
[2019-03-11 03:12] VITALS: BP 100/58
[2019-03-11] MEDS: CEFTAZIDIME PENTAHYDRATE 1 GM/VIAL IVP SCH ×3 (05:57→18:28)
[2019-03-11] MEDS: LEVOTHYROXINE 125 MCG TABLET PO SCH (05:57)
[2019-03-11 07:00] VITALS: BP 101/51
--- NOTE | 2019-03-11 08:15 | NUR ---
AM ASSESSMENT PT LAYING IN BED, RESTING. A/O X 3. NO SOB. NO DISTRESS NOTED. DENIES CHEST PAIN OR DISCOMFORT. DENIES PALPITATIONS. TELE: 1st DEGREE AV BLOCK. STERNAL INCISION, WELL APPROX. NO DRAINAGE NOTED. STERNAL PRECAUTIONS REINFORCED. DENIES N/V AND/OR DIARRHEA. UP W/ASSISTANCE. INSTRUCTED TO CALL FOR ASSISTANCE. CALL ROBINSON W/IN REACH.
[2019-03-11] MEDS: FAMOTIDINE 20MG TAB 20 MG TAB PO SCH (08:53)
[2019-03-11] MEDS: ASPIRIN 325 MG TABLET PO SCH (08:54)
[2019-03-11] MEDS: AMIODARONE HCL 200 MG TABLET PO SCH (08:54)
[2019-03-11] MEDS: FE FUMARATE/FA/MV, MIN COMB#15 1 TAB PO SCH (08:54)
[2019-03-11] MEDS: FUROSEMIDE 20 MG TABLET PO SCH ×2 (08:54→13:51)
[2019-03-11] MEDS: FLUOXETINE HCL 20 MG CAPSULE PO SCH (08:54)
[2019-03-11] MEDS: ENOXAPARIN SODIUM 30 MG/0.3 ML SQ SCH (08:55)
[2019-03-11] MEDS: POLYETHYLENE GLYCOL 3350 17 GM POWD.PACK PO SCH (08:55)
[2019-03-11] MEDS: IRON SUCROSE COMPLEX 100 MG in SODIUM CHLORIDE 0.9% 50 ML IV SCH (09:00)
[2019-03-11 11:39] VITALS: BP 110/63
[2019-03-11 15:30] VITALS: BP 101/57
--- NOTE | 2019-03-11 16:14 | NUR ---
DC PLAN [facility] CALLED BACK AT 1600 SAID THEY ACCEPTED PATIENT AND READY FOR REPORT. LET NURSE KNOW THEY WILL SEE PATIENT IN THE MORNING. Addendum: 03/11/19 at 1618 by ELIO QUINTERO RN CM Amended: Links added.
--- NOTE | 2019-03-11 16:57 | NUR ---
DISCHARGE REPORT CALLED TO WILLIAM ECHOLS LVN W/[facility].
[2019-03-11] MEDS ORDERED: FURO20TA6 PO (17:13)
[2019-03-11] MEDS ORDERED: TRAM50TA4 PO (17:13)
[2019-03-11] MEDS ORDERED: LEVO125T95 PO (17:13)
--- NOTE | 2019-03-11 20:23 | NUR ---
pt discharged home. discharge instructions given and explained to patient in azeri. Jocelyn spoke with pt daughter regarding discharge from suture site.
== END 2019-03-11 20:10 | disposition home health service (06) | DRG 856 ==
LOC: EDH 18:38 → EDHIP 23:22 → 2DH 02-27 22:11
PROVIDERS: ADMIT Internal Medicine; ATTEND Internal Medicine
PROC: 0J960ZZ Drainage of Chest Subcutaneous Tissue and Fascia, Open Approach (ICD-10-PCS; principal; 2019-03-03 14:27)
PROC: 02HV33Z Insertion of Infusion Device into Superior Vena Cava, Percutaneous Approach (ICD-10-PCS; 2019-03-09)
DX: T81.42XA Infection following a procedure, deep incisional surgical site, initial encounter (principal); A41.50 Gram-negative sepsis, unspecified; I50.41 Acute combined systolic (congestive) and diastolic (congestive) heart failure; E87.1 Hypo-osmolality and hyponatremia; L03.313 Cellulitis of chest wall; L02.213 Cutaneous abscess of chest wall; J98.11 Atelectasis; T81.31XA Disruption of external operation (surgical) wound, not elsewhere classified, initial encounter; N40.0 Benign prostatic hyperplasia without lower urinary tract symptoms; B96.1 Klebsiella pneumoniae [K. pneumoniae] as the cause of diseases classified elsewhere; G30.9 Alzheimer's disease, unspecified; F02.80 Dementia in other diseases classified elsewhere, unspecified severity, without behavioral disturbance, psychotic disturbance, mood disturbance, and anxiety; I11.0 Hypertensive heart disease with heart failure; I25.10 Atherosclerotic heart disease of native coronary artery without angina pectoris; I48.91 Unspecified atrial fibrillation; E78.00 Pure hypercholesterolemia, unspecified; E03.9 Hypothyroidism, unspecified; M19.90 Unspecified osteoarthritis, unspecified site; Y83.8 Other surgical procedures as the cause of abnormal reaction of the patient, or of later complication, without mention of misadventure at the time of the procedure; E11.9 Type 2 diabetes mellitus without complications; F32.9 Major depressive disorder, single episode, unspecified; F41.9 Anxiety disorder, unspecified; E78.5 Hyperlipidemia, unspecified; D50.0 Iron deficiency anemia secondary to blood loss (chronic); E66.01 Morbid (severe) obesity due to excess calories; K80.20 Calculus of gallbladder without cholecystitis without obstruction; Z95.1 Presence of aortocoronary bypass graft; Z82.3 Family history of stroke; Z83.3 Family history of diabetes mellitus; Z82.49 Family history of ischemic heart disease and other diseases of the circulatory system; Z88.6 Allergy status to analgesic agent; Z88.8 Allergy status to other drugs, medicaments and biological substances; Y92.89 Other specified places as the place of occurrence of the external cause; Z68.30 Body mass index [BMI] 30.0-30.9, adult; Z79.899 Other long term (current) drug therapy
CPT/HCPCS: 36415; 71045; 71260; 80048; 80053; 80202; 81003; 83540; 83550; 83735; 83880; 84100; 84145; 84443; 85025; 85027; 85610; 85651; 85730; 86140; 87040; 87070; 87076; 87077; 87186; 93306; 97039; A4606; A7048; C1894; G0378; J0330; J0696; J0713; J0885; J1100; J1650; J1756; J1940; J2001; J2405; J2543; J2704; J2710; J3010; J3370; J3490; J7030; J7040; Q9967